=== PATIENT | female | born 1950 | race Caucasian/White ===

== ENCOUNTER 2021-12-27 05:33 | Emergency (ER) | payer MEDICARE ==
[2021-12-27] MEDS ORDERED: SODIUM CHLORIDE 0.9% 1,000 ML IV STA (05:42)
[2021-12-27] MEDS ORDERED: SODIUM CHLORIDE 0.9% 500 ML 500 ML IV STA (05:42)
[2021-12-27] MEDS ORDERED: HYDROmorphone 1 MG/ML 1 ML SYRINGE IVP STA ×2 (05:51→10:57)
[2021-12-27] MEDS ORDERED: ONDANSETRON 4 MG/2 ML VIAL IVP STA (06:13)
[2021-12-27 06:19] LABS: Partial Thromboplastin Time 22.2 sec (22.0-30.0)
[2021-12-27 06:22] LABS: Albumin 2.9 g/dL (3.5-5.0); Calcium 8.5 mg/dL (8.4-10.2); Magnesium 1.8 mg/dL (1.6-2.3); Phosphorus 3.6 mg/dL (2.5-4.5); Potassium 4.2 mmol/L (3.5-5.1); Total Bilirubin 0.6 mg/dL (0.2-1.3); Total Protein 5.7 g/dL (6.3-8.2)
[2021-12-27 06:23] LABS: Basophils # (A) 0.1 k/uL (0-0.2); Basophils % (A) 0 %; Eosinophils # (A) 0.1 k/uL (0-0.7); Eosinophils % (A) 1 %; HCT 40.2 % (34.0-46.0); HGB 12.6 gm/dL (11.4-16.0); Hypochromasia Moderate; Lymphocytes # (A) 2.8 k/uL (1.0-4.8); Lymphocytes % (A) 17 %; MCH 31.3 pg (25.0-35.0); MCHC 31.4 g/dL (31.0-37.0); MCV 99.9 fL (80.0-100.0); Macrocytosis Slight; Mean Platelet Volume 9.6; Monocytes # (A) 0.7 k/uL (0-1.0); Monocytes % (A) 5 %; Neutrophils # (A) 12.1 k/uL (1.3-7.7); Neutrophils % (A) 76 %; Platelet Count 224 k/uL (150-450); RBC 4.02 m/uL (3.80-5.40)
[2021-12-27 06:28] LABS: Appearance,Urine Clear (Clear); Bilirubin,Urine 1+ (Negative); Blood,Urine Trace (Negative); Color,Urine Yellow; Glucose,Urine (UA) Negative (Negative); Hyaline Casts,Urine 7 /lpf (0-2); Ketones,Urine 2+ (Negative); Leukocyte Esterase,Urine Negative (Negative); Mucus,Urine Moderate /hpf; Nitrite,Urine Negative (Negative); Protein,Urine 1+ (Negative); RBC,Urine 4 /hpf (0-5); Specific Gravity,Urine 1.037 (1.001-1.035); Squamous Epithelial Cell,Urine 2 /hpf (0-4); WBC,Urine 4 /hpf (0-5)
--- NOTE | 2021-12-27 07:10 | ED ---
Abdominal Pain HPI - General Chief Complaint: Abdominal Pain Stated Complaint: abd pain Time Seen by Provider: 12/27/21 06:00 Source: patient, RN notes reviewed Mode of arrival: EMS - History of Present Illness Initial Comments: This is a 71 year old female who presents to the emergency department for abdominal pain and distension. States that the symptoms have been present for 1-1.5 weeks. Abdominal pain started in the bilateral lower quadrants, and has spread to the right upper quadrant. States that she has had intermittent loose stools, denies any hematochezia, dysuria, hematuria, fevers, or chills. Abdominal pain is described as sharp and she states that it has been progressing over the last 1-1.5 weeks. She has associated nausea and vomiting. Patient is currently being treated for uterine cancer with Dr. Mckinney at [facility]. Unsure how aggressive the cancer is, but states that she believes it is fairly severe. MD Complaint: abdominal pain Onset/Timin -: week(s) Location: RUQ, LLQ, RLQ Severity: severe Quality: sharp Consistency: constant Associated Symptoms: nausea, vomiting, diarrhea - Related Data Allergies Allergy/AdvReac Type Severity Reaction Status Date / Time propoxyphene Allergy Nausea & Verified 12/27/21 05:51 [From Darvocet-N] Vomiting Review of Systems ROS Statement: Those systems with pertinent positive or pertinent negative responses have been documented in the HPI. ROS Other: All systems not noted in ROS Statement are negative. Constitutional: Denies: fever, chills ENT: Denies: ear pain, throat pain Respiratory: Denies: cough, dyspnea Cardiovascular: Denies: chest pain, palpitations Endocrine: Denies: fatigue Gastrointestinal: Reports: abdominal pain, nausea, vomiting, diarrhea. Denies: constipation, hematemesis, hematochezia Genitourinary: Denies: urgency, dysuria, frequency, hematuria Musculoskeletal: Denies: back pain Skin: Denies: rash Neurological: Denies: headache General Exam Limitations: no limitations General appearance: alert, in no apparent distress Head exam: Present: atraumatic, normocephalic, normal inspection Neck exam: Present: normal inspection. Absent: tenderness, meningismus, lymphadenopathy Respiratory exam: Present: normal lung sounds bilaterally. Absent: respiratory distress, wheezes, rales, rhonchi, stridor Cardiovascular Exam: Present: regular rate, normal rhythm, normal heart sounds. Absent: systolic murmur, diastolic murmur, rubs, gallop, clicks GI/Abdominal exam: Present: soft, distended, tenderness (RUQ, RLQ, and LLQ), normal bowel sounds. Absent: guarding, rebound, rigid, organomegaly, mass Neurological exam: Present: alert, oriented X3, CN II-XII intact Psychiatric exam: Present: normal affect, normal mood Skin exam: Present: warm, dry, intact, normal color. Absent: rash Course Vital Signs 12/27/21 12/27/21 12/27/21 05:41 07:14 08:59 Temperature 97.5 F L Pulse Rate 100 102 H 110 H Respiratory 18 20 20 Rate Blood Pressure 112/45 130/78 126/67 O2 Sat by Pulse 99 98 96 Oximetry 12/27/21 10:57 Temperature 98.5 F Pulse Rate 100 Respiratory 22 Rate Blood Pressure 115/89 O2 Sat by Pulse 100 Oximetry Medical Decision Making - Medical Decision Making This is a 71-year-old female who presents the emergency department for abdominal pain. Initial lab work obtained reveals an elevated white count with a left shift. Given the concern for infection, a CT with contrast was obtained for further evaluation. She does not have compromised kidney function preventing her from having IV contrast. CT scan of the abd/pelvis revealed a suspicious ovarian pathology, omental caking, ascites, and liver and lung metastasis. Patient is currently being treated for uterine cancer and CLL. CLL is being monitored by Dr. Cabrera with [facility]. Her uterine cancer is currently being worked up by Dr. Mckinney at [facility]. She was told that uterine cancer is severe, however she is unsure what stage it is at. She also had breast cancer in the . She had a lumpectomy but no chemo or radiation was required. Cancer progression is likely the cause of the patient's progressive abdominal pain. Discussed with the patient that her cancer had metastasized to her lungs and liver, with concern for additional ovarian pathology. Discussed with the patient the option of being admitted to our facility for pain control vs being transferred to [facility] to see her oncologist Dr. Mckinney for continuity of care. Patient would like to be transferred to [facility]. She was accepted by [facility] and will be transferred accordingly. Dr. Atkins is the accepting physician in the emergency department. This case was discussed in detail with the attending ED physician. Presentation, findings, and treatment plan discussed in detail as well. - Lab Data Result diagrams: 12/27/21 05:59 12/27/21 05:59 Lab Results 12/27/21 12/27/21 12/27/21 Range/Units 05:59 05:59 05:59 WBC 16.0 H (3.8-10.6) k/uL RBC 4.02 (3.80-5.40) m/uL Hgb 12.6 (11.4-16.0) gm/dL Hct 40.2 (34.0-46.0) % MCV 99.9 (80.0-100.0) fL MCH 31.3 (25.0-35.0) pg MCHC 31.4 (31.0-37.0) g/dL RDW 15.0 (11.5-15.5) % Plt Count 224 (150-450) k/uL MPV 9.6 Neutrophils % 76 % Lymphocytes % 17 % Monocytes % 5 % Eosinophils % 1 % Basophils % 0 % Neutrophils # 12.1 H (1.3-7.7) k/uL Lymphocytes # 2.8 (1.0-4.8) k/uL Monocytes # 0.7 (0-1.0) k/uL Eosinophils # 0.1 (0-0.7) k/uL Basophils # 0.1 (0-0.2) k/uL Hypochromasia Moderate Macrocytosis Slight PT 11.0 (9.0-12.0) sec INR 1.0 (<1.2) APTT 22.2 (22.0-30.0) sec Sodium (137-145) mmol/L Potassium (3.5-5.1) mmol/L Chloride (98-107) mmol/L Carbon Dioxide (22-30) mmol/L Anion Gap mmol/L BUN (7-17) mg/dL Creatinine (0.52-1.04) mg/dL Est GFR (CKD-EPI)AfAm (>60 ml/min/1.73 sqM) Est GFR (CKD-EPI)NonAf (>60 ml/min/1.73 sqM) Glucose (74-99) mg/dL Plasma Lactic Acid Gui (0.7-2.0) mmol/L Calcium (8.4-10.2) mg/dL Phosphorus (2.5-4.5) mg/dL Magnesium (1.6-2.3) mg/dL Total Bilirubin (0.2-1.3) mg/dL AST (14-36) U/L ALT (4-34) U/L Alkaline Phosphatase (38-126) U/L Troponin I (0.000-0.034) ng/mL NT-Pro-B Natriuret Pep pg/mL Total Protein (6.3-8.2) g/dL Albumin (3.5-5.0) g/dL Lipase (23-300) U/L Urine Color Yellow Urine Appearance Clear (Clear) Urine pH 6.0 (5.0-8.0) Ur Specific [place] 1.037 H (1.001-1.035) Urine Protein 1+ H (Negative) Urine Glucose (UA) Negative (Negative) Urine Ketones 2+ H (Negative) Urine Blood Trace H (Negative) Urine Nitrite Negative (Negative) Urine Bilirubin 1+ H (Negative) Urine Urobilinogen 4.0 (<2.0) mg/dL Ur Leukocyte Esterase Negative (Negative) Urine RBC 4 (0-5) /hpf Urine WBC 4 (0-5) /hpf Ur Squamous Epith Cells 2 (0-4) /hpf Hyaline Casts 7 H (0-2) /lpf Urine Mucus Moderate H (None) /hpf 12/27/21 12/27/21 12/27/21 Range/Units 05:59 05:59 05:59 WBC (3.8-10.6) k/uL RBC (3.80-5.40) m/uL Hgb (11.4-16.0) gm/dL Hct (34.0-46.0) % MCV (80.0-100.0) fL MCH (25.0-35.0) pg MCHC (31.0-37.0) g/dL RDW (11.5-15.5) % Plt Count (150-450) k/uL MPV Neutrophils % % Lymphocytes % % Monocytes % % Eosinophils % % Basophils % % Neutrophils # (1.3-7.7) k/uL Lymphocytes # (1.0-4.8) k/uL Monocytes # (0-1.0) k/uL Eosinophils # (0-0.7) k/uL Basophils # (0-0.2) k/uL Hypochromasia Macrocytosis PT (9.0-12.0) sec INR (<1.2) APTT (22.0-30.0) sec Sodium 131 L (137-145) mmol/L Potassium 4.2 (3.5-5.1) mmol/L Chloride 96 L (98-107) mmol/L Carbon Dioxide 23 (22-30) mmol/L Anion Gap 12 mmol/L BUN 12 (7-17) mg/dL Creatinine 0.99 (0.52-1.04) mg/dL Est GFR (CKD-EPI)AfAm 67 (>60 ml/min/1.73 sqM) Est GFR (CKD-EPI)NonAf 58 (>60 ml/min/1.73 sqM) Glucose 114 H (74-99) mg/dL Plasma Lactic Acid Gui 2.0 (0.7-2.0) mmol/L Calcium 8.5 (8.4-10.2) mg/dL Phosphorus 3.6 (2.5-4.5) mg/dL Magnesium 1.8 (1.6-2.3) mg/dL Total Bilirubin 0.6 (0.2-1.3) mg/dL AST 34 (14-36) U/L ALT 9 (4-34) U/L Alkaline Phosphatase 71 (38-126) U/L Troponin I <0.012 (0.000-0.034) ng/mL NT-Pro-B Natriuret Pep pg/mL Total Protein 5.7 L (6.3-8.2) g/dL Albumin 2.9 L (3.5-5.0) g/dL Lipase 30 (23-300) U/L Urine Color Urine Appearance (Clear) Urine pH (5.0-8.0) Ur Specific [place] (1.001-1.035) Urine Protein (Negative) Urine Glucose (UA) (Negative) Urine Ketones (Negative) Urine Blood (Negative) Urine Nitrite (Negative) Urine Bilirubin (Negative) Urine Urobilinogen (<2.0) mg/dL Ur Leukocyte Esterase (Negative) Urine RBC (0-5) /hpf Urine WBC (0-5) /hpf Ur Squamous Epith Cells (0-4) /hpf Hyaline Casts (0-2) /lpf Urine Mucus (None) /hpf 12/27/21 Range/Units 05:59 WBC (3.8-10.6) k/uL RBC (3.80-5.40) m/uL Hgb (11.4-16.0) gm/dL Hct (34.0-46.0) % MCV (80.0-100.0) fL MCH (25.0-35.0) pg MCHC (31.0-37.0) g/dL RDW (11.5-15.5) % Plt Count (150-450) k/uL MPV Neutrophils % % Lymphocytes % % Monocytes % % Eosinophils % % Basophils % % Neutrophils # (1.3-7.7) k/uL Lymphocytes # (1.0-4.8) k/uL Monocytes # (0-1.0) k/uL Eosinophils # (0-0.7) k/uL Basophils # (0-0.2) k/uL Hypochromasia Macrocytosis PT (9.0-12.0) sec INR (<1.2) APTT (22.0-30.0) sec Sodium (137-145) mmol/L Potassium (3.5-5.1) mmol/L Chloride (98-107) mmol/L Carbon Dioxide (22-30) mmol/L Anion Gap mmol/L BUN (7-17) mg/dL Creatinine (0.52-1.04) mg/dL Est GFR (CKD-EPI)AfAm (>60 ml/min/1.73 sqM) Est GFR (CKD-EPI)NonAf (>60 ml/min/1.73 sqM) Glucose (74-99) mg/dL Plasma Lactic Acid Gui (0.7-2.0) mmol/L Calcium (8.4-10.2) mg/dL Phosphorus (2.5-4.5) mg/dL Magnesium (1.6-2.3) mg/dL Total Bilirubin (0.2-1.3) mg/dL AST (14-36) U/L ALT (4-34) U/L Alkaline Phosphatase (38-126) U/L Troponin I (0.000-0.034) ng/mL NT-Pro-B Natriuret Pep 92 pg/mL Total Protein (6.3-8.2) g/dL Albumin (3.5-5.0) g/dL Lipase (23-300) U/L Urine Color Urine Appearance (Clear) Urine pH (5.0-8.0) Ur Specific [place] (1.001-1.035) Urine Protein (Negative) Urine Glucose (UA) (Negative) Urine Ketones (Negative) Urine Blood (Negative) Urine Nitrite (Negative) Urine Bilirubin (Negative) Urine Urobilinogen (<2.0) mg/dL Ur Leukocyte Esterase (Negative) Urine RBC (0-5) /hpf Urine WBC (0-5) /hpf Ur Squamous Epith Cells (0-4) /hpf Hyaline Casts (0-2) /lpf Urine Mucus (None) /hpf - EKG Data EKG shows normal: sinus rhythm EKG Comments: Sinus rhythm, ventricular rate of 99 BPM, MS interval of 123 ms, QRS duration of 82 ms, and QTc of 412 ms. When compared to previous EKG there are: previous EKG unavailable - Radiology Data Radiology results: report reviewed, image reviewed Disposition Clinical Impression: Metastasis to liver, Metastasis to lung, Uterine cancer Disposition: OTHER INSTITUTION NOT DEFINED Referrals: Evonne Ritchie MD [Primary Care Provider] - 1-2 days - Out of Hospital Transfer - Req. Specs Out of Hospital Transfer - Requested Specifics: Other Emergency Center ([facility])
--- NOTE | 2021-12-27 09:03 | CT ---
EXAMINATION TYPE: CT abdomen pelvis w con DATE OF EXAM: 12/27/2021 COMPARISON: None INDICATION: Abdominal pain-generalized, nausea and vomiting DLP: 1663.6 mGycm, Automated exposure control for dose reduction was used. CONTRAST: 80 mL of Isovue 300. Study performed without Oral Contrast TECHNIQUE: Axial images were obtained from above the diaphragm to the pubic rami in the axial plane a t 5 mm thick sections. Reconstructed images are reviewed on the computer in the coronal plane. FINDINGS: Limited CT sections are obtained the lung bases. Extensive nodularity is present through the periphe ral lung bases. Largest peripheral nodule in the posterior lateral left lung measuring 2.3 x 1.3 cm. Findings are suggestive for metastatic disease. Small bilateral pleural effusions are present.. CT ABDOMEN: Ascites is present omental caking appears to be present. Liver: There are multiple scattered hypodensities through the liver suspicious for multiple metastati c disease. Spleen: No suspicious nodules identified. Pancreas: Normal Adrenal glands: The adrenal glands are normal. Gallbladder: Normal Kidneys: No masses are evident. No hydronephrosis is present. No cysts are present. Delayed images were obtained through the kidneys, which remain unremarkable. Aorta: Vascular calcification is within the aorta. Inferior vena cava: Normal. CT PELVIS: Loops of bowel within the abdomen and pelvis are normal. The study is performed without oral cont rast limiting bowel evaluation. Appendix: Normal as visualized. Urinary bladder: A compressive limited evaluation Genitourinary structures: Uterus appears heterogenous and may contain thickened endometrium. Ovaries are indistinct. Large cysts appear to be present on the right. Osseous structures: No suspicious lytic or sclerotic lesions. Postsurgical changes of the lumbar spin e IMPRESSIONS: 1. Ill-defined enlarged uterus and suspicious thickened cysts within the right adnexa. Omental cakin g, ascites, and multiple nodules within the lung bases and through the liver suggest metastatic disea se. Workup for ovarian primary is recommended.
[2021-12-27 10:58] VITALS: TEMP 98.5
[2021-12-27 12:16] VITALS: BP 135/60; PULSE 105; RESP 18
== END 2021-12-27 12:32 | disposition other institution (70) ==
LOC: EC 05:33
DX: C55 Malignant neoplasm of uterus, part unspecified (principal); C78.7 Secondary malignant neoplasm of liver and intrahepatic bile duct; C78.00 Secondary malignant neoplasm of unspecified lung
CPT/HCPCS: 36415; 93005; 83880; 80053; 83605; 83690; 83735; 84100; 84484; 85025; 85610; 85730; 81001; 74177; 99285; 96374; 96375; 96376; J2405; J1170; Q9967

== ENCOUNTER 2022-01-03 16:44 | Inpatient (IN) | payer MEDICARE ==
[2022-01-03 16:53] LABS: Glucose,Whole Blood 115 mg/dL (75-99)
[2022-01-03] MEDS ORDERED: SODIUM CHLORIDE 0.9% 500 ML 500 ML IV STA (17:25)
--- NOTE | 2022-01-03 17:35 | ED ---
General Adult HPI - General Chief complaint: Fall Stated complaint: Fall Time Seen by Provider: 01/03/22 16:50 Source: EMS Mode of arrival: EMS Limitations: no limitations - History of Present Illness Initial comments: This 71-year-old female with CKD stage IV, hyperlipidemia and uterine cancer with metastases to liver and kidney presents to the emergency department after falling earlier today. Patient states around 2:00 she went to get up from her c hair when she states her legs gave out, causing her to fall hitting her right shoulder and head. Patient states she was discharged from [facility] about 2 days ago and has been feeling increased weakness since due to her laying in bed in the hospital for so long. Patient denies any loss of consciousness, neck or head pain at this time. Patient states she has had some mild aching to her right shoulder. Patient states she did fall onto her right knee first before falling onto her right shoulder and hitting the right side of her head, however she denies any pain to the right knee at this time or any loss of range of motion or sensation of right knee/leg. Patient denies any chest pain, shortness of breath, abdominal pain, nausea, vomiting, change in vision, change in bowel or bladder, lightheadedness, dizziness, neck pain, back pain. Patient states she currently sees at [facility] for oncology. Patient states she is not on chemo or radiation to states she is on something for her cancer but is unsure what it is. She states she gets the treatment one time every 3 weeks. - Related Data Home Medications Medication Instructions Recorded Confirmed Acetaminophen Tab [Tylenol] 975 mg PO Q6H PRN 01/03/22 01/03/22 Ascorbic Acid [Vitamin C] 2,000 mg PO DAILY 01/03/22 01/03/22 Cholecalciferol [Vitamin D3 (25 25 mcg PO DAILY 01/03/22 01/03/22 Mcg = 1000 Iu)] Dulaglutide [Trulicity] 0.75 mg SQ MO 01/03/22 01/03/22 Losartan [Cozaar] 12.5 mg PO HS 01/03/22 01/03/22 Magnesium Hydroxide [Milk of 2,400 mg PO HS PRN 01/03/22 01/03/22 Magnesia] Metoprolol Tartrate [Lopressor] 12.5 mg PO BID 01/03/22 01/03/22 Simethicone Chew [Mylicon Chew] 80 mg PO QID PRN 01/03/22 01/03/22 Simvastatin [Zocor] 20 mg PO HS 01/03/22 01/03/22 ondansetron HCL [Zofran] 8 mg PO Q8H PRN 01/03/22 01/03/22 oxyCODONE HCL [OxyIR] 7.5 mg PO Q4H PRN 01/03/22 01/03/22 polyethylene glycoL 3350 [Miralax] 17 gm PO DAILY 01/03/22 01/03/22 Allergies Allergy/AdvReac Type Severity Reaction Status Date / Time amoxicillin [From Augmentin] Allergy Unknown Verified 01/03/22 18:05 clavulanic acid Allergy Unknown Verified 01/03/22 18:05 [From Augmentin] erythromycin base Allergy Unknown Verified 01/03/22 18:05 metformin Allergy Unknown Verified 01/03/22 18:05 propoxyphene AdvReac Nausea & Verified 01/03/22 18:04 [From Darvocet-N] Vomiting sodium acetate trihydrate Allergy Unknown Uncoded 01/03/22 18:05 Review of Systems ROS Statement: Those systems with pertinent positive or pertinent negative responses have been documented in the HPI. ROS Other: All systems not noted in ROS Statement are negative. Past Medical History Past Medical History: Diabetes Mellitus, Hypertension Additional Past Medical History / Comment(s): kidney dx stage 4. liver issues. uterine cx with mets to liver and kidney. hypercholestremia History of Any Multi-Drug Resistant Organisms: None Reported Past Surgical History: Tubal Ligation Additional Past Surgical History / Comment(s): eye surgery Past Psychological History: No Psychological Hx Reported Smoking Status: Never smoker Past Alcohol Use History: None Reported Past Drug Use History: None Reported General Exam Limitations: no limitations General appearance: alert, in no apparent distress Head exam: Present: atraumatic, normocephalic, normal inspection Eye exam: Present: normal appearance, PERRL, EOMI. Absent: scleral icterus, conjunctival injection, periorbital swelling ENT exam: Present: mucous membranes moist Neck exam: Present: normal inspection, full ROM. Absent: tenderness, meningismus, lymphadenopathy Respiratory exam: Present: normal lung sounds bilaterally, wheezes (Left lung with wheezing). Absent: respiratory distress, rales, rhonchi, stridor Cardiovascular Exam: Present: regular rate, normal rhythm, normal heart sounds. Absent: systolic murmur, diastolic murmur, rubs, gallop, clicks GI/Abdominal exam: Present: soft, tenderness (Diffuse generalized abdominal discomfort on palpation. Patient states her abdomen is usually distended similar to this and states she has gotten paracentesis performed in the past due to her cancer), normal bowel sounds. Absent: distended, guarding, rebound, rigid Extremities exam: Present: normal inspection, full ROM, normal capillary refill, other (Patient with tenderness to palpation over proximal and anterior right shoulder. Patient with full range of motion. Radial and ulnar pulses intact. Full sensation intact in right extremity). Absent: tenderness, pedal edema, joint swelling, calf tenderness Back exam: Absent: CVA tenderness (R), CVA tenderness (L), paraspinal tenderness, vertebral tenderness Neurological exam: Present: alert, oriented X3, CN II-XII intact Psychiatric exam: Present: normal affect, normal mood Skin exam: Present: warm, dry, intact, normal color, diaphoretic. Absent: rash Course Vital Signs 01/03/22 01/03/22 01/03/22 16:45 18:41 20:00 Temperature 95.4 F L Pulse Rate 107 H 105 H 98 Respiratory 20 18 16 Rate Blood Pressure 104/48 111/66 112/57 O2 Sat by Pulse 95 96 96 Oximetry EKG Findings - EKG Comments: EKG Findings:: EKG impression: Sinus tachycardia. Ventricular rate 106 bpm. [place] interval 129. Tress duration 86. QT/QTC 337/399 Medical Decision Making - Medical Decision Making This 8-year-old female with metastatic uterine cancer presents emergency [place] after a fall this morning and increased weakness. Patient with that blood cells 20.6, PTT 31.3, sodium 126, potassium 5.6, BUN 32, creatinine 1.42, pleasant lactic acid 2.1. X-ray right shoulder impression: No acute osseous pathology, joint dislocation or soft tissue swelling. Chest x-ray impression: No acute cardiopulmonary disease process. Scattered pulmonary nodules cystic with metastatic disease. CT brain and C-spine without contrast impression: Area of vasogenic edema in the left frontal lobe along with pulmonary nodules likely representing metastatic disease. No evidence of cervical spine fracture. Mild multilevel degenerative disc disease. No acute intracranial process. Fluids given the patient. COVID-19 negative. Spoke with who agreed to admit patient to his services. He did suggest I give patient lokelma 10mg along with placing patient on IV fluids. from oncology was consulted. Patient did request to stay at [facility] rather than being transferred to [facility] where her oncology team currently is at. Patient verbally agreed to be admitted for further workup, evaluation and treatment. Discussed case in detail with my attending, . Urine did show ordered and collected, however once he called lab they denied receiving any urine sample. Patient was already sent to upstairs room at this time. Nurse did call patient's nurse upstairs after patient was placed in a room to request a urine sample. - Lab Data Result diagrams: 01/03/22 17:26 01/03/22 17:26 Lab Results 01/03/22 01/03/22 01/03/22 Range/Units 16:50 17:26 17:26 WBC 20.6 H (3.8-10.6) k/uL RBC 4.39 (3.80-5.40) m/uL Hgb 13.6 (11.4-16.0) gm/dL Hct 43.8 (34.0-46.0) % MCV 99.7 (80.0-100.0) fL MCH 30.8 (25.0-35.0) pg MCHC 30.9 L (31.0-37.0) g/dL RDW 15.0 (11.5-15.5) % Plt Count 342 (150-450) k/uL MPV 9.3 Neutrophils % 75 % Lymphocytes % 21 % Monocytes % 3 % Eosinophils % 0 % Basophils % 0 % Neutrophils # 15.4 H (1.3-7.7) k/uL Lymphocytes # 4.4 (1.0-4.8) k/uL Monocytes # 0.6 (0-1.0) k/uL Eosinophils # 0.0 (0-0.7) k/uL Basophils # 0.1 (0-0.2) k/uL Hypochromasia Moderate Macrocytosis Slight PT 11.0 (9.0-12.0) sec INR 1.0 (<1.2) APTT 31.3 H (22.0-30.0) sec Sodium (137-145) mmol/L Potassium (3.5-5.1) mmol/L Chloride (98-107) mmol/L Carbon Dioxide (22-30) mmol/L Anion Gap mmol/L BUN (7-17) mg/dL Creatinine (0.52-1.04) mg/dL Est GFR (CKD-EPI)AfAm (>60 ml/min/1.73 sqM) Est GFR (CKD-EPI)NonAf (>60 ml/min/1.73 sqM) Glucose (74-99) mg/dL POC Glucose (mg/dL) 115 H (75-99) mg/dL POC Glu Cloth Cutting Inspector ID Erwin Ceballos Lactic Ac Sepsis Rflx Plasma Lactic Acid Gui (0.7-2.0) mmol/L Calcium (8.4-10.2) mg/dL Magnesium (1.6-2.3) mg/dL Total Bilirubin (0.2-1.3) mg/dL AST (14-36) U/L ALT (4-34) U/L Alkaline Phosphatase (38-126) U/L Troponin I (0.000-0.034) ng/mL Total Protein (6.3-8.2) g/dL Albumin (3.5-5.0) g/dL Amylase (30-110) U/L Lipase (23-300) U/L Coronavirus (PCR) (Not Detectd) 01/03/22 01/03/22 01/03/22 Range/Units 17:26 17:26 17:26 WBC (3.8-10.6) k/uL RBC (3.80-5.40) m/uL Hgb (11.4-16.0) gm/dL Hct (34.0-46.0) % MCV (80.0-100.0) fL MCH (25.0-35.0) pg MCHC (31.0-37.0) g/dL RDW (11.5-15.5) % Plt Count (150-450) k/uL MPV Neutrophils % % Lymphocytes % % Monocytes % % Eosinophils % % Basophils % % Neutrophils # (1.3-7.7) k/uL Lymphocytes # (1.0-4.8) k/uL Monocytes # (0-1.0) k/uL Eosinophils # (0-0.7) k/uL Basophils # (0-0.2) k/uL Hypochromasia Macrocytosis PT (9.0-12.0) sec INR (<1.2) APTT (22.0-30.0) sec Sodium 126 L (137-145) mmol/L Potassium 5.6 H (3.5-5.1) mmol/L Chloride 97 L (98-107) mmol/L Carbon Dioxide 16 L (22-30) mmol/L Anion Gap 13 mmol/L BUN 32 H (7-17) mg/dL Creatinine 1.42 H (0.52-1.04) mg/dL Est GFR (CKD-EPI)AfAm 43 (>60 ml/min/1.73 sqM) Est GFR (CKD-EPI)NonAf 38 (>60 ml/min/1.73 sqM) Glucose 122 H (74-99) mg/dL POC Glucose (mg/dL) (75-99) mg/dL POC Glu Cloth Cutting Inspector ID Lactic Ac Sepsis Rflx Plasma Lactic Acid Gui 2.1 H* (0.7-2.0) mmol/L Calcium 8.8 (8.4-10.2) mg/dL Magnesium 2.3 (1.6-2.3) mg/dL Total Bilirubin 0.6 (0.2-1.3) mg/dL AST 53 H (14-36) U/L ALT 13 (4-34) U/L Alkaline Phosphatase 160 H (38-126) U/L Troponin I <0.012 (0.000-0.034) ng/mL Total Protein 5.4 L (6.3-8.2) g/dL Albumin 2.7 L (3.5-5.0) g/dL Amylase 36 (30-110) U/L Lipase 59 (23-300) U/L Coronavirus (PCR) (Not Detectd) 01/03/22 01/03/22 Range/Units 18:03 18:55 WBC (3.8-10.6) k/uL RBC (3.80-5.40) m/uL Hgb (11.4-16.0) gm/dL Hct (34.0-46.0) % MCV (80.0-100.0) fL MCH (25.0-35.0) pg MCHC (31.0-37.0) g/dL RDW (11.5-15.5) % Plt Count (150-450) k/uL MPV Neutrophils % % Lymphocytes % % Monocytes % % Eosinophils % % Basophils % % Neutrophils # (1.3-7.7) k/uL Lymphocytes # (1.0-4.8) k/uL Monocytes # (0-1.0) k/uL Eosinophils # (0-0.7) k/uL Basophils # (0-0.2) k/uL Hypochromasia Macrocytosis PT (9.0-12.0) sec INR (<1.2) APTT (22.0-30.0) sec Sodium (137-145) mmol/L Potassium (3.5-5.1) mmol/L Chloride (98-107) mmol/L Carbon Dioxide (22-30) mmol/L Anion Gap mmol/L BUN (7-17) mg/dL Creatinine (0.52-1.04) mg/dL Est GFR (CKD-EPI)AfAm (>60 ml/min/1.73 sqM) Est GFR (CKD-EPI)NonAf (>60 ml/min/1.73 sqM) Glucose (74-99) mg/dL POC Glucose (mg/dL) (75-99) mg/dL POC Glu Cloth Cutting Inspector ID Lactic Ac Sepsis Rflx Y Plasma Lactic Acid Gui (0.7-2.0) mmol/L Calcium (8.4-10.2) mg/dL Magnesium (1.6-2.3) mg/dL Total Bilirubin (0.2-1.3) mg/dL AST (14-36) U/L ALT (4-34) U/L Alkaline Phosphatase (38-126) U/L Troponin I (0.000-0.034) ng/mL Total Protein (6.3-8.2) g/dL Albumin (3.5-5.0) g/dL Amylase (30-110) U/L Lipase (23-300) U/L Coronavirus (PCR) Not Detected (Not Detectd) Disposition Clinical Impression: Metastatic cancer to brain, Weakness, Leukocytosis, Hyponatremia, Fall, Uterine cancer, Metastasis to lung, Metastasis to liver Disposition: ADMITTED IP TO THIS HOSP Condition: Serious Time of Disposition: 19:03
[2022-01-03 17:48] LABS: Basophils # (A) 0.1 k/uL (0-0.2); Basophils % (A) 0 %; Eosinophils % (A) 0 %; HCT 43.8 % (34.0-46.0); HGB 13.6 gm/dL (11.4-16.0); Hypochromasia Moderate; Lymphocytes # (A) 4.4 k/uL (1.0-4.8); Lymphocytes % (A) 21 %; MCH 30.8 pg (25.0-35.0); MCHC 30.9 g/dL (31.0-37.0); MCV 99.7 fL (80.0-100.0); Macrocytosis Slight; Mean Platelet Volume 9.3; Monocytes # (A) 0.6 k/uL (0-1.0); Monocytes % (A) 3 %; Neutrophils # (A) 15.4 k/uL (1.3-7.7); Neutrophils % (A) 75 %; Partial Thromboplastin Time 31.3 sec (22.0-30.0); Platelet Count 342 k/uL (150-450); RBC 4.39 m/uL (3.80-5.40); WBC 20.6 k/uL (3.8-10.6)
[2022-01-03] MEDS ORDERED: HYDROmorphone 0.5 MG/0.5 ML SYRINGE IVP STA (17:48)
[2022-01-03] MEDS ORDERED: FAMOTIDINE 20 MG/2 ML VIAL IV STA (17:49)
[2022-01-03 17:50] LABS: Albumin 2.7 g/dL (3.5-5.0); Calcium 8.8 mg/dL (8.4-10.2); Magnesium 2.3 mg/dL (1.6-2.3); Potassium 5.6 mmol/L (3.5-5.1); Total Bilirubin 0.6 mg/dL (0.2-1.3); Total Protein 5.4 g/dL (6.3-8.2)
--- NOTE | 2022-01-03 18:20 | CT ---
EXAMINATION TYPE: CT brain cspine wo con CT DLP: 1339.6 mGycm, Automated exposure control for dose reduction was used. DATE OF EXAM: 01/03/2022 6:03 PM COMPARISON: None CLINICAL INDICATION:Female, 71 years old with history of syncope; pain, fall TECHNIQUE: Brain: Multiple axial CT images of the brain were obtained without IV contrast. Cspine: Axial CT images from the skull base to the inferior aspect of T2 we obtained without intraven ous contrast. Coronal and sagittal reformatted images were also reviewed. FINDINGS: Brain: Extra-axial spaces: No abnormal extra-axial fluid collections. Ventricular system: Within normal limits Cerebral parenchyma: Area of vasogenic edema within the left upper lobe without loss of albrecht-white ma tter differentiation. This is suspicious for underlying mass. No acute intraparenchymal hemorrhage. The remainder of the albrecht-white junctions are well differentiated. Cerebellum: Unremarkable. Mass effect: No evidence of midline shift. Intracranial vasculature: Atherosclerotic calcifications of the intracranial vessels. Soft tissues: Normal. Calvarium/osseous structures: No depressed skull fracture. Paranasal sinuses and mastoid air cells: Clear. Visualized orbits: Bilateral aphakia Cervical spine: Fracture: None. Osseous structures: Multilevel degenerative disc disease changes with endplate spurring and disc oste ophyte complex's. Vertebral alignment: Within normal limits. Spinal canal/Neural Foramina: No evidence of significant spinal canal narrowing. No evidence for sign ificant neural foraminal stenosis. Neck soft tissues: Prevertebral soft tissues are within normal limits. Other: The airway is patent. There is scattered pulmonary nodules throughout the visualized lungs, th e largest in the right measuring up to 10 mm and on the left measuring up to 9 mm. IMPRESSION: 1. No acute intracranial process. 2. Area of vasogenic edema in the left frontal lobe along with pulmonary nodules likely representing metastatic disease. 3. No evidence of cervical spine fracture. 4. Mild multilevel degenerative disc disease.
--- NOTE | 2022-01-03 18:22 | XR ---
EXAMINATION TYPE: XR shoulder complete RT DATE OF EXAM: 01/03/2022 6:05 PM INDICATION: Patient age:Female; 71 years old; Reason for study: fall; COMPARISON: Chest radiograph same day TECHNIQUE: The right shoulder was examined in AP, internally rotated and axillary projections. FINDINGS: No evidence of acute osseous pathology, joint dislocation, or soft tissue swelling. The remaining por tions of the visualized chest are unremarkable. Right [id number]-a-[id number] partially visualized. IMPRESSION: No acute osseous pathology.
--- NOTE | 2022-01-03 18:22 | XR ---
EXAMINATION TYPE: XR chest 2V DATE OF EXAM: 01/03/2022 6:05 PM COMPARISON: CT C-spine same day TECHNIQUE: XR chest 2V Frontal and lateral views of the chest. CLINICAL INDICATION:Female, 71 years old with history of syncope; FINDINGS: Lungs/Pleura: There is no evidence of pleural effusion, focal consolidation, or pneumothorax. Scatte red pulmonary nodules are better appreciated on CT C-spine. Largest on the right measuring up to 8 mm on this exam. Pulmonary vascularity: Unremarkable. Heart/mediastinum: Cardiomediastinal silhouette is unremarkable. Musculoskeletal: No acute osseous pathology. Lines/Tubes: Erotjk-k-[id number] projecting over the right hemithorax with distal tip at the cavoatrial junction. IMPRESSION: 1. No acute cardiopulmonary disease/process. 2. Scattered pulmonary nodules cystic with metastatic disease.
[2022-01-03] MEDS ORDERED: SODIUM ZIRCONIUM CYCLOSILICATE 10 GM PACKET PO ONE (19:01)
[2022-01-03] MEDS ORDERED: ONDANSETRON 4 MG/2 ML VIAL IVP PRN (19:03)
[2022-01-03] MEDS ORDERED: NALOXONE 0.4 MG/ML 1 ML VIAL IV PRN (19:03)
[2022-01-03] MEDS: HYDROmorphone 0.5 MG/0.5 ML SYRINGE IVP PRN (23:41)
[2022-01-04 00:05] LABS: Glucose,Whole Blood 101 mg/dL (75-99)
[2022-01-04] MEDS: SODIUM CHLORIDE 0.9% 1,000 ML IV SCH ×2 (01:35→07:04)
[2022-01-04] MEDS: HYDROmorphone 0.5 MG/0.5 ML SYRINGE IVP PRN ×3 (03:22→16:36)
[2022-01-04] MEDS ORDERED: ACETAMINOPHEN TAB 325 MG TAB PO PRN (10:16)
[2022-01-04] MEDS ORDERED: TEMAZEPAM 15 MG CAP PO PRN (12:03)
[2022-01-04] MEDS ORDERED: LORazepam 0.5 MG TAB PO PRN (12:03)
[2022-01-04] MEDS ORDERED: LACTULOSE 20 GM/30 ML CUP PO PRN (12:03)
[2022-01-04] MEDS ORDERED: ENOXAPARIN 40 MG/0.4 ML SYRINGE SQ SCH (12:15)
[2022-01-04] MEDS ORDERED: DEXTROSE 5%-0.45% NACL 1,000 ML IV SCH (12:15)
[2022-01-04] MEDS: oxyCODONE ER 10 MG TAB.ER.12H PO SCH ×2 (12:16→20:15)
[2022-01-04 12:17] VITALS: BMI 32.9
[2022-01-04] MEDS: dexAMETHasone 4 MG TAB PO SCH ×2 (12:22→20:16)
--- NOTE | 2022-01-04 14:23 | P.HPIM ---
History of Present Illness H&P Date: 01/04/22 Chief Complaint: Weakness leading to fall This is a pleasant 71-year-old patient who follows with Dr. Ritchie. Patient has a diagnosis of uterine cancer with metastatic cystoscopy of the lungs kidney liver diagnosed about 1 year ago. She follows with Dr. Mckinney out of [facility]. Patient has received 6 rounds of chemotherapy. Has been getting currently getting Keytruda. Patient was discharged from [facility] 2 days ago. Patient has increasing abdominal pain. Bloated. Appetite is poor. Denies any fever and chills. Normally a bowel movement every 3 days with a laxative. Does get short of breath. No cough. Feels rather weak. Patient got up from a chair at home and fell down falling on the right side hitting her shoulder and head. Did not pass out. She normally uses assistance to walk. She does not wish to continue her treatment down to [place] anymore and wants to establish locally. Review of systems: GEN.: Weak diet poor appetite EYES: None HEENT: None NECK: None RESPIRATORY: Some shortness of breath CARDIOVASCULAR: None GASTROINTESTINAL: Constipation GENITOURINARY: None MUSCULOSKELETAL: Joint pains LYMPHATICS: None HEMATOLOGICAL: None PSYCHIATRY: None NEUROLOGICAL: Leg weakness Past medical history to include: Metastatic uterine cancer treated with chemotherapy, diabetes, hypertension, CAD stage IV, hypercholesterolemia Social history: Patient smoked for over 40 years. Not currently. Lives with her daughter Indy was also the POA. Family history: Reviewed, noncontributory to presentation Physical examination: VITAL SIGNS: 98.2, 107, 17, 92/48, 91% room air GENERAL: BMI 32.9, laying in bed, awake, tired. EYES: Pupils equal. Conjunctiva palel. HEENT: External appearance of nose and ears normal, oral cavity grossly normal. NECK: JVD not raised; masses not palpable. HEART: First and second heart sounds are normal; no edema. LUNGS: Respiratory rate increased, decreased breath sounds. ABDOMEN: [Soft, distended, Doughy tender, liver spleen not palpable, PSYCH: [Alert and oriented x3; mood and affect anxious l. MUSCULOSKELETAL:No Clubbing/cyanosis;muscles-grossly intact, some more NEUROLOGICAL: Cranial nerves grossly intact; no facial asymmetry, power and sensation grossly intact. LYMPHATICS: No lymph nodes palpable in the axilla and neck INVESTIGATIONS, reviewed in the clinical context: White count 20.6 hemoglobin 13.6 platelets 342 sodium 126 potassium 5.6 bicarb 16 BUN 32 creatinine 1.4 to lactic acid 2.1 AST 53 ALT 13 albumin 2.7 COVID 19 PCF: Not detected EKG tracing personally reviewed by me-sinus rhythm, rate 106 Right shoulder: No fracture Chest x-ray film personally reviewed by me-scattered shadows infiltrates CT head: Area of vasogenic edema in the left frontal lobe suspicious of prostatic disease. DJD. 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 Patient was being followed by Dr. Steven Ritchie at [facility]. She wants to move her care here at [facility] on. New Metastatic disease found of the brain now. Consult radiation oncology. Start dexamethasone 4 mg twice a day. -Fall due to worsening medical debility Fall precautions -Acute on chronic abdominal pain that is progressive from metastatic disease intra-abdominally with taking of the omentum and other organs. Start OxyContin 10 mg ER twice daily and when necessary pain medications -Acute kidney injury. Baseline kidney function not known. Suspect prerenal. Hold Cozaar. IV fluids -Metabolic acidosis due to kidney injury IV sodium bicarbonate drip -Hyperkalemia secondary to renal failure Lokelma. Renal diet -Hyperlipidemia Zocor 20 mg daily at bedtime -Diabetes mellitus type 2 Follow Accu-Cheks with sliding scale insulin -Vasogenic edema in the brain Dexamethasone 4 mg twice a day -Hypotension from volume loss. Hold Lopressor and Cozaar. IV fluids -DO NOT RESUSCITATE Sodium IV bicarbonate drip. Fall precautions. OxyContin extended release 10 mg twice a day plus when necessary pain medications. Hold Lopressor and Cozaar. Low potassium diet. Follow Accu-Cheks. Consult oncology. Consult radiation oncology. Soft diet. Care was discussed with the patient question also. Given the complexity and severity of patient's condition expect the patient to be in the hospital at least for 2 overnights Advanced care planning: This was discussed with the patient. Expected in view of metastatic disease. Patient is Dr. Putnam is the POA. Patient has not set up any papers will do so. She has wishes to progress made DO NOT RESUSCITATE. Questions were answered. Time spent for this 20 minutes Past Medical History Past Medical History: Diabetes Mellitus, Hypertension Additional Past Medical History / Comment(s): kidney dx stage 4. liver issues. uterine cx with mets to liver and kidney. hypercholestremia History of Any Multi-Drug Resistant Organisms: None Reported Past Surgical History: Tubal Ligation Additional Past Surgical History / Comment(s): eye surgery Past Anesthesia/Blood Transfusion Reactions: No Reported Reaction Past Psychological History: No Psychological Hx Reported Smoking Status: Never smoker Past Alcohol Use History: None Reported Past Drug Use History: None Reported Medications and Allergies Home Medications Medication Instructions Recorded Confirmed Type Acetaminophen Tab [Tylenol] 975 mg PO Q6H PRN 01/03/22 01/03/22 History Ascorbic Acid [Vitamin C] 2,000 mg PO DAILY 01/03/22 01/03/22 History Cholecalciferol [Vitamin D3 (25 25 mcg PO DAILY 01/03/22 01/03/22 History Mcg = 1000 Iu)] Dulaglutide [Trulicity] 0.75 mg SQ MO 01/03/22 01/03/22 History Losartan [Cozaar] 12.5 mg PO HS 01/03/22 01/03/22 History Magnesium Hydroxide [Milk of 2,400 mg PO HS PRN 01/03/22 01/03/22 History Magnesia] Metoprolol Tartrate [Lopressor] 12.5 mg PO BID 01/03/22 01/03/22 History Simethicone Chew [Mylicon Chew] 80 mg PO QID PRN 01/03/22 01/03/22 History Simvastatin [Zocor] 20 mg PO HS 01/03/22 01/03/22 History ondansetron HCL [Zofran] 8 mg PO Q8H PRN 01/03/22 01/03/22 History oxyCODONE HCL [OxyIR] 7.5 mg PO Q4H PRN 01/03/22 01/03/22 History polyethylene glycoL 3350 [Miralax] 17 gm PO DAILY 01/03/22 01/03/22 History Allergies Allergy/AdvReac Type Severity Reaction Status Date / Time amoxicillin [From Augmentin] Allergy Unknown Verified 01/03/22 18:05 clavulanic acid Allergy Unknown Verified 01/03/22 18:05 [From Augmentin] erythromycin base Allergy Unknown Verified 01/03/22 18:05 metformin Allergy Unknown Verified 01/03/22 18:05 propoxyphene AdvReac Nausea & Verified 01/03/22 18:04 [From Darvocet-N] Vomiting sodium acetate trihydrate Allergy Unknown Uncoded 01/03/22 18:05 Physical Exam Vitals: Vital Signs Temp Pulse Pulse Resp BP BP Pulse Ox 01/04/22 09:41 101 H 100/48 01/04/22 08:56 97.3 F L 105 H 81/61 96 01/04/22 07:12 103 H 01/04/22 02:00 97.6 F 103 H 17 131/98 95 01/03/22 21:00 98.2 F 107 H 17 92/48 91 L 01/03/22 20:00 98 16 112/57 96 01/03/22 18:41 105 H 18 111/66 96 01/03/22 16:45 95.4 F L 107 H 20 104/48 95 Intake and Output 01/03/22 01/04/22 01/04/22 22:59 06:59 14:59 Output Total 5 Balance -5 Output: Urine 5 Other: Voiding Method Bedside Commode Bedside Commode # Voids 1 # Bowel Movements 0 Weight 81.647 kg Results CBC & Chem 7: 01/03/22 17:26 01/03/22 17:26 Labs: Abnormal Lab Results - Last 24 Hours (Table) 01/03/22 01/03/22 01/03/22 Range/Units 16:50 17:26 17:26 WBC 20.6 H (3.8-10.6) k/uL MCHC 30.9 L (31.0-37.0) g/dL Neutrophils # 15.4 H (1.3-7.7) k/uL APTT 31.3 H (22.0-30.0) sec Sodium (137-145) mmol/L Potassium (3.5-5.1) mmol/L Chloride (98-107) mmol/L Carbon Dioxide (22-30) mmol/L BUN (7-17) mg/dL Creatinine (0.52-1.04) mg/dL Glucose (74-99) mg/dL POC Glucose (mg/dL) 115 H (75-99) mg/dL Plasma Lactic Acid Gui (0.7-2.0) mmol/L AST (14-36) U/L Alkaline Phosphatase (38-126) U/L Total Protein (6.3-8.2) g/dL Albumin (3.5-5.0) g/dL 01/03/22 01/03/22 01/03/22 Range/Units 17:26 17:26 23:55 WBC (3.8-10.6) k/uL MCHC (31.0-37.0) g/dL Neutrophils # (1.3-7.7) k/uL APTT (22.0-30.0) sec Sodium 126 L (137-145) mmol/L Potassium 5.6 H (3.5-5.1) mmol/L Chloride 97 L (98-107) mmol/L Carbon Dioxide 16 L (22-30) mmol/L BUN 32 H (7-17) mg/dL Creatinine 1.42 H (0.52-1.04) mg/dL Glucose 122 H (74-99) mg/dL POC Glucose (mg/dL) 101 H (75-99) mg/dL Plasma Lactic Acid Gui 2.1 H* (0.7-2.0) mmol/L AST 53 H (14-36) U/L Alkaline Phosphatase 160 H (38-126) U/L Total Protein 5.4 L (6.3-8.2) g/dL Albumin 2.7 L (3.5-5.0) g/dL Thrombosis Risk Factor Assmnt - Choose All That Apply Each Risk Factor Represents 2 Points: Age 61-74 years, Malignancy Thrombosis Risk Factor Assessment Total Risk Factor Score: 4 Thrombosis Risk Factor Assessment Level: Moderate Risk
[2022-01-04] MEDS: DEXTROSE 5% IN WATER 1,000 ML with SODIUM BICARB (1 MEQ/ML) 100 ML IV SCH (14:58)
[2022-01-04] MEDS: IPRATROPIUM-ALBUTEROL 3 ML NEB INHALATION SCH ×2 (16:33→19:45)
[2022-01-04 17:08] LABS: Glucose,Whole Blood 170 mg/dL (75-99)
[2022-01-04] MEDS: INSULIN ASPART (NovoLOG) 100 UNIT/ML VIAL SQ SCH (17:19)
[2022-01-04 18:08] LABS: Appearance,Urine Cloudy (Clear); Bacteria,Urine Rare /hpf; Bilirubin,Urine 1+ (Negative); Blood,Urine Moderate (Negative); Color,Urine Yellow; Glucose,Urine (UA) Negative (Negative); Hyaline Casts,Urine 7 /lpf (0-2); Ketones,Urine 1+ (Negative); Leukocyte Esterase,Urine Trace (Negative); Mucus,Urine Rare /hpf; Nitrite,Urine Negative (Negative); Protein,Urine 1+ (Negative); RBC,Urine 3 /hpf (0-5); Specific Gravity,Urine 1.028 (1.001-1.035); Squamous Epithelial Cell,Urine 3 /hpf (0-4); WBC,Urine 10 /hpf (0-5)
--- NOTE | 2022-01-04 18:16 | CONS ---
CONSULTATION DATE OF SERVICE: 01/04/2022 REASON FOR THE CONSULTATION: Metastatic uterine cancer with a history of brain metastases. HISTORY OF PRESENT ILLNESS: Alka Isbell is a 71-year-old female who has a history of stage IV uterine cancer. The patient has been undergoing treatment with Gynecologic Oncology. The patient underwent systemic chemotherapy. She has recently been switched to Keytruda. The patient presented to the hospital with nausea, weakness, intractable vomiting. The patient had multiple tests, including imaging studies that revealed multiple pulmonary masses. The patient has a history of ascites. The patient was noted to have brain metastasis. PAST MEDICAL HISTORY: 1. GERD. 2. Uterine cancer as per HPI. 3. Insulin-dependent diabetes. 4. Hypertension. PAST SURGICAL HISTORY: [facility]. MEDICATIONS: Tylenol, budesonide, calcium carbonate, dexamethasone, famotidine, Lovenox, hydrocodone, insulin, DuoNeb, Ativan, Narcan, Zofran, oxycodone, extended-release OxyContin. ALLERGIES: AMOXICILLIN, AUGMENTIN, ERYTHROMYCIN, METFORMIN, DARVOCET AND SODIUM ACETATE. SOCIAL HISTORY: The patient lives in her own home. She is accompanied by her two daughters. The patient has been undergoing care by her family. She denies significant history of tobacco or alcohol abuse. FAMILY HISTORY: Noncontributory. REVIEW OF SYSTEMS: Ms. Isbell lives in her own home. She denies significant history of tobacco or alcohol abuse. PHYSICAL EXAMINATION: Ms. Isbell is an elderly obese female resting in a hospital bed. She does have evidence of ascites. The patient's temperature is 97.3, pulse is 100, BP is 81/61. PO2 is 96% on 2 L by nasal cannula. She has diffuse alopecia of the scalp. Head and neck examination reveals no cervical or supraclavicular lymphadenopathy. Lungs reveal decreased breath sounds at the bases of the lungs bilaterally. Heart: RRR of the heart sounds. Abdomen is benign with no masses or organomegaly. Extremity examination reveals full range of motion. No cyanosis, clubbing or edema detected. Neurologic examination reveals cranial nerves 2 through 12 intact. Strength and sensation intact. Deep intact. Skin/integument examination reveals no lesions. Psychiatric evaluation reveals no mood disorders. Neurologic examination does appear to be grossly intact. IMPRESSION: Alka Isbell is a 71-year-old female with a history of metastatic adenocarcinoma involving the lungs and the brain. The patient presented with intractable nausea and vomiting which may very well be related to the brain metastasis identified on recent imaging. The patient otherwise has problems, includin. Insulin-dependent diabetes. 2. Hypertension. 3. Intractable vomiting and nausea. 4. Anemia. 5. Hypotension. Pain scale evaluation zero. Pain medication: None. PLAN: The patient and I discussed results of recent testing. This appears to show evidence of brain metastasis. The patient has been undergoing systemic therapy. She did undergo evaluation with Medical Oncology. The patient and I discussed the results of her recent testing. Potentially the patient may benefit from palliative radiation treatment. We will re- evaluate the patient and we will discuss the case with Medical Oncology. Likely the patient would benefit from a short course of radiation treatment. Thank you again for allowing me to participate in the care of Alka Isbell. TI / JETT: [id number] /
[2022-01-04] MEDS: BUDESONIDE 1 MG/2 ML NEBU INHALATION SCH (20:10)
[2022-01-04 20:34] LABS: Glucose,Whole Blood 140 mg/dL (75-99)
[2022-01-05] MEDS: DEXTROSE 5% IN WATER 1,000 ML with SODIUM BICARB (1 MEQ/ML) 100 ML IV SCH ×2 (03:48→12:29)
[2022-01-05 05:32] LABS: African American GFR (CKD) 49 (>60 ml/min/1.73 sqM); Anion Gap 5 mmol/L; Blood Urea Nitrogen 37 mg/dL (7-17); Calcium 8.1 mg/dL (8.4-10.2); Carbon Dioxide 25 mmol/L (22-30); Chloride 93 mmol/L (98-107); Glucose 146 mg/dL (74-99); Non-African American GFR(CKD) 42 (>60 ml/min/1.73 sqM); Sodium 123 mmol/L (137-145)
[2022-01-05 06:55] LABS: Glucose,Whole Blood 183 mg/dL (75-99)
[2022-01-05] MEDS: BUDESONIDE 1 MG/2 ML NEBU INHALATION SCH ×2 (08:04→19:19)
[2022-01-05] MEDS: IPRATROPIUM-ALBUTEROL 3 ML NEB INHALATION SCH ×4 (08:04→19:19)
[2022-01-05] MEDS: ENOXAPARIN 30 MG/0.3 ML SYRINGE SQ SCH (08:14)
[2022-01-05] MEDS: oxyCODONE ER 10 MG TAB.ER.12H PO SCH (08:14)
[2022-01-05] MEDS: INSULIN ASPART (NovoLOG) 100 UNIT/ML VIAL SQ SCH ×3 (08:15→16:49)
[2022-01-05] MEDS: dexAMETHasone 4 MG TAB PO SCH ×2 (08:16→19:30)
[2022-01-05] MEDS: HYDROmorphone 0.5 MG/0.5 ML SYRINGE IVP PRN ×5 (08:57→20:56)
--- NOTE | 2022-01-05 09:12 | P.CONS ---
History of Present Illness - Reason for Consult Consult date: 01/04/22 Metastatic uterine cancer Requesting physician: Patience Hayward - Chief Complaint Fall - History of Present Illness Mrs. Dawson is a very pleasant 71-year-old female with PMH including DMII, HTN, hyperlipidemia, chronic pain on narcotics, who was brought to the ER via EMS, she reported on arrival that her legs gave out, she fell and hit her head. She reported to us that she was at home, was getting up from commode and unfortunately used her walker to brace herself and proceeded to fall forward. She denies any dizziness or syncope prior to the episode. She had been inpt at [facility] for several days and was just recently discharged. Xray of the shoulder did not show fracture or dislocation. Patient is currently on every 3 week keytruda treatment. She has paracentesis x 2 twice in 1 week, 2-3 L each time. She had an elevated potassium of 5.6 on admit, sodium 126, lactic acid increased at 2.1-normal today. CXR, pulm nodules c/w met disease. CT brain wit h concerning findings in the lt frontal lobe, suspicious for mets. Covid negative. Denies any PIERCE, chest pain, shortness of breath, cough, abdominal pain, nausea, vomiting, change in bowel or bladder, pain or swelling. Review of Systems 14 point review of systems is negative except stated in HPI Past Medical History Past Medical History: Cancer, Diabetes Mellitus, Hypertension Additional Past Medical History / Comment(s): kidney dx stage 4. liver issues. uterine cx with mets to liver and kidney. hypercholestremia History of Any Multi-Drug Resistant Organisms: None Reported Past Surgical History: Tubal Ligation Additional Past Surgical History / Comment(s): eye surgery Past Anesthesia/Blood Transfusion Reactions: No Reported Reaction Past Psychological History: No Psychological Hx Reported Smoking Status: Never smoker Past Alcohol Use History: None Reported Past Drug Use History: None Reported Medications and Allergies Home Medications Medication Instructions Recorded Confirmed Type Acetaminophen Tab [Tylenol] 975 mg PO Q6H PRN 01/03/22 01/03/22 History Ascorbic Acid [Vitamin C] 2,000 mg PO DAILY 01/03/22 01/03/22 History Cholecalciferol [Vitamin D3 (25 25 mcg PO DAILY 01/03/22 01/03/22 History Mcg = 1000 Iu)] Dulaglutide [Trulicity] 0.75 mg SQ MO 01/03/22 01/03/22 History Losartan [Cozaar] 12.5 mg PO HS 01/03/22 01/03/22 History Magnesium Hydroxide [Milk of 2,400 mg PO HS PRN 01/03/22 01/03/22 History Magnesia] Metoprolol Tartrate [Lopressor] 12.5 mg PO BID 01/03/22 01/03/22 History Simethicone Chew [Mylicon Chew] 80 mg PO QID PRN 01/03/22 01/03/22 History Simvastatin [Zocor] 20 mg PO HS 01/03/22 01/03/22 History ondansetron HCL [Zofran] 8 mg PO Q8H PRN 01/03/22 01/03/22 History oxyCODONE HCL [OxyIR] 7.5 mg PO Q4H PRN 01/03/22 01/03/22 History polyethylene glycoL 3350 [Miralax] 17 gm PO DAILY 01/03/22 01/03/22 History Allergies Allergy/AdvReac Type Severity Reaction Status Date / Time amoxicillin [From Augmentin] Allergy Unknown Verified 01/03/22 18:05 clavulanic acid Allergy Unknown Verified 01/03/22 18:05 [From Augmentin] erythromycin base Allergy Unknown Verified 01/03/22 18:05 metformin Allergy Unknown Verified 01/03/22 18:05 propoxyphene AdvReac Nausea & Verified 01/03/22 18:04 [From Darvocet-N] Vomiting sodium acetate trihydrate Allergy Unknown Uncoded 01/03/22 18:05 Physical Exam Vitals: Vital Signs Temp Pulse Pulse Resp BP BP Pulse Ox 01/04/22 09:41 101 H 100/48 01/04/22 08:56 97.3 F L 105 H 81/61 96 01/04/22 07:12 103 H 01/04/22 02:00 97.6 F 103 H 17 131/98 95 01/03/22 21:00 98.2 F 107 H 17 92/48 91 L 01/03/22 20:00 98 16 112/57 96 01/03/22 18:41 105 H 18 111/66 96 01/03/22 16:45 95.4 F L 107 H 20 104/48 95 Intake and Output 01/03/22 01/04/22 01/04/22 22:59 06:59 14:59 Output Total 5 Balance -5 Output: Urine 5 Other: Voiding Method Bedside Commode Bedside Commode # Voids 1 # Bowel Movements 0 Weight 81.647 kg - Constitutional General appearance: average body habitus, cooperative, no acute distress - EENT Eyes: anicteric sclerae, EOMI ENT: hearing grossly normal, normal oropharynx - Neck Neck: no lymphadenopathy - Respiratory Respiratory: bilateral: CTA - Cardiovascular Rhythm: regular Heart sounds: normal: S1, S2 Abnormal Heart Sounds: no systolic murmur, no diastolic murmur, no rub, no S3 Gallop, no S4 Gallop, no click, no other leg Peripheral Edema: bilateral: None - Gastrointestinal General gastrointestinal: no absent bowel sounds, no decreased bowel sounds, distended (Mild), no hepatomegaly, no hyperactive bowel sounds, normal bowel sounds, no organomegaly, no rigid, no scaphoid, soft, no splenomegaly, no tenderness, no umbilical hernia, no ventral hernia - Integumentary Integumentary: normal - Neurologic Neurologic: CNII-XII intact - Musculoskeletal Musculoskeletal: strength equal bilaterally - Psychiatric Psychiatric: A&O x's 3, appropriate affect, intact judgment & insight Results CBC & Chem 7: 01/03/22 17:26 01/05/22 03:51 Labs: Abnormal Lab Results - Last 24 Hours (Table) 01/03/22 01/03/22 01/03/22 Range/Units 16:50 17:26 17:26 WBC 20.6 H (3.8-10.6) k/uL MCHC 30.9 L (31.0-37.0) g/dL Neutrophils # 15.4 H (1.3-7.7) k/uL APTT 31.3 H (22.0-30.0) sec Sodium (137-145) mmol/L Potassium (3.5-5.1) mmol/L Chloride (98-107) mmol/L Carbon Dioxide (22-30) mmol/L BUN (7-17) mg/dL Creatinine (0.52-1.04) mg/dL Glucose (74-99) mg/dL POC Glucose (mg/dL) 115 H (75-99) mg/dL Plasma Lactic Acid Gui (0.7-2.0) mmol/L AST (14-36) U/L Alkaline Phosphatase (38-126) U/L Total Protein (6.3-8.2) g/dL Albumin (3.5-5.0) g/dL 01/03/22 01/03/22 01/03/22 Range/Units 17:26 17:26 23:55 WBC (3.8-10.6) k/uL MCHC (31.0-37.0) g/dL Neutrophils # (1.3-7.7) k/uL APTT (22.0-30.0) sec Sodium 126 L (137-145) mmol/L Potassium 5.6 H (3.5-5.1) mmol/L Chloride 97 L (98-107) mmol/L Carbon Dioxide 16 L (22-30) mmol/L BUN 32 H (7-17) mg/dL Creatinine 1.42 H (0.52-1.04) mg/dL Glucose 122 H (74-99) mg/dL POC Glucose (mg/dL) 101 H (75-99) mg/dL Plasma Lactic Acid Gui 2.1 H* (0.7-2.0) mmol/L AST 53 H (14-36) U/L Alkaline Phosphatase 160 H (38-126) U/L Total Protein 5.4 L (6.3-8.2) g/dL Albumin 2.7 L (3.5-5.0) g/dL Chest x-ray: report reviewed CT scan - abdomen: report reviewed CT Scan - head: report reviewed CT scan - pelvis: report reviewed Assessment and Plan (1) Fall Narrative/Plan: Fall, sounds accidental but, lactic on admit elevated, infection work up pending. Fluid given. Suspicious findings on CT head without contrast-need to contact Primary Oncologist to see if this is new finding. Current Visit: Yes Status: Acute Priority: High Code(s): W19.XXXA - UNSPECIFIED FALL, INITIAL ENCOUNTER SNOMED Code(s): 4117280 (2) Uterine cancer Narrative/Plan: Pt reports most recently on keytruda Q 3 weeks. Pending discussion with Primary Onc. Current Visit: Yes Status: Acute Priority: High Code(s): C55 - MALIGNANT NEOPLASM OF UTERUS, PART UNSPECIFIED SNOMED Code(s): 646716008 Plan: attests: I have performed H&P, seen and examined pt, developed impression and plan of care. Discussed with dictator. Agree with dictation, documented as a scribe.
[2022-01-05 11:18] LABS: Glucose,Whole Blood 148 mg/dL (75-99)
[2022-01-05] MEDS: SODIUM ZIRCONIUM CYCLOSILICATE 10 GM PACKET PO SCH ×3 (11:26→19:31)
--- NOTE | 2022-01-05 14:36 | P.PN ---
Progress Note - Text Progress Note Date: 01/05/22 Chief Complaint: Weakness leading to fall This is a pleasant 71-year-old patient who follows with Dr. Ritchie. Patient has a diagnosis of uterine cancer with metastatic cystoscopy of the lungs kidney liver diagnosed about 1 year ago. She follows with Dr. Mckinney out of [facility]. Patient has received 6 rounds of chemotherapy. Has been getting currently getting Keytruda. Patient was discharged from [facility] 2 days ago. Patient has increasing abdominal pain. Bloated. Appetite is poor. Denies any fever and chills. Normally a bowel movement every 3 days with a laxative. Does get short of breath. No cough. Feels rather weak. Patient got up from a chair at home and fell down falling on the right side hitting her shoulder and head. Did not pass out. She normally uses assistance to walk. She does not wish to continue her treatment down to [place] anymore and wants to establish locally. January 05: Still having significant abdominal and hip pain. OxyContin will be increased to 50 mg twice a day. Potassium running high. Lokelma and it 10 mg 3 times a day. Radiation oncology is looking at palliative radiation treatment. Add ensure. Decreased appetite. Active Medications Acetaminophen (Acetaminophen Tab 325 Mg Tab) 975 mg PO Q6H PRN PRN Reason: Mild Pain Albuterol/Ipratropium (Ipratropium-Albuterol 3 Ml Neb) 3 ml INHALATION RT-QID [facility] Last Admin: 01/05/22 11:36 Dose: 3 ml Documented by: Budesonide (Budesonide 1 Mg/2 Ml Nebu) 1 mg INHALATION RT-BID [facility] Last Admin: 01/05/22 08:04 Dose: 1 mg Documented by: Calcium Carbonate/Glycine (Calcium Carbonate 500 Mg Chewable) 1,000 mg PO Q4HR PRN PRN Reason: Dyspepsia Dexamethasone (Dexamethasone 4 Mg Tab) 4 mg PO BID [facility] Last Admin: 01/05/22 08:16 Dose: 4 mg Documented by: Enoxaparin Sodium (Enoxaparin 30 Mg/0.3 Ml Syringe) 30 mg SQ DAILY [facility] Last Admin: 01/05/22 08:14 Dose: 30 mg Documented by: Hydromorphone HCl (Hydromorphone 0.5 Mg/0.5 Ml Syringe) 0.5 mg IVP Q3HR PRN PRN Reason: Moderate Pain Last Admin: 01/05/22 13:27 Dose: 0.5 mg Documented by: Ceftriaxone Sodium 1 gm/ (Sodium Chloride) 50 mls @ 100 mls/hr IVPB Q12HR [facility]; Protocol Last Admin: 01/05/22 08:14 Dose: 100 mls/hr Documented by: Sodium Bicarbonate 100 ml/ (Dextrose/Water) 1,100 mls @ 100 mls/hr IV .Q11H [facility] Last Admin: 01/05/22 12:29 Dose: 100 mls/hr Documented by: Insulin Aspart (Insulin Aspart (Novolog) 100 Unit/Ml Vial) 0 unit SQ AC-TID [facility]; Protocol Last Admin: 01/05/22 11:30 Dose: 1 unit Documented by: Lactulose (Lactulose 20 Gm/30 Ml Cup) 20 gm PO DAILY PRN PRN Reason: Constipation Lorazepam (Lorazepam 0.5 Mg Tab) 0.5 mg PO Q6HR PRN PRN Reason: Anxiety Naloxone HCl (Naloxone 0.4 Mg/Ml 1 Ml Vial) 0.2 mg IV Q2M PRN PRN Reason: Opioid Reversal Ondansetron HCl (Ondansetron 4 Mg/2 Ml Vial) 4 mg IVP Q8HR PRN PRN Reason: Nausea And Vomiting Oxycodone HCl (Oxycodone Hcl 5 Mg Tab) 7.5 mg PO Q4H PRN PRN Reason: Moderate Pain Last Admin: 01/05/22 02:24 Dose: 7.5 mg Documented by: Oxycodone HCl (Oxycodone Er 15 Mg Tab.Er.12h) 15 mg PO Q12HR [facility]; Protocol Sodium Zirconium Cyclosilicate (Sodium Zirconium Cyclosilicate 10 Gm Packet) 10 gm PO TID [facility] Stop: 01/06/22 09:01 Last Admin: 01/05/22 11:26 Dose: 10 gm Documented by: Temazepam (Temazepam 15 Mg Cap) 15 mg PO HS PRN PRN Reason: Insomnia Past medical history to include: Metastatic uterine cancer treated with chemotherapy, diabetes, hypertension, CAD stage IV, hypercholesterolemia Social history: Patient smoked for over 40 years. Not currently. Lives with her daughter Indy was also the POA. Family history: Reviewed, noncontributory to presentation Physical examination: VITAL SIGNS: 97.8, 90, 19, 103/62, 98% room air GENERAL: , laying in bed, awake, uncomfortable EYES: Pupils equal. Conjunctiva palel. HEENT: External appearance of nose and ears normal, oral cavity grossly normal. NECK: JVD not raised; masses not palpable. HEART: First and second heart sounds are normal; no edema. LUNGS: Respiratory rate increased, decreased breath sounds. ABDOMEN: Soft, distended, Doughy tender, liver spleen not palpable, PSYCH: [Alert and oriented x3; mood and affect anxious MUSCULOSKELETAL:No Clubbing/cyanosis;muscles-grossly intact, some more INVESTIGATIONS, reviewed in the clinical context: January 05: Sodium 123 potassium 6 BUN 37 creatinine 1.29 White count 20.6 hemoglobin 13.6 platelets 342 sodium 126 potassium 5.6 bicarb 16 BUN 32 creatinine 1.4 to lactic acid 2.1 AST 53 ALT 13 albumin 2.7 COVID 19 PCF: Not detected EKG tracing personally reviewed by me-sinus rhythm, rate 106 Right shoulder: No fracture Chest x-ray film personally reviewed by me-scattered shadows infiltrates CT head: Area of vasogenic edema in the left frontal lobe suspicious of prostatic disease. DJD. 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 Patient was being followed by Dr. Steven Ritchie at [facility]. She wants to move her care here at [place] on. New Metastatic disease found of the brain . Possible palliative radiation in place.. dexamethasone 4 mg twice a day. -Fall due to worsening medical debility Fall precautions -Acute on chronic abdominal pain that is progressive from metastatic disease intra-abdominally with taking of the omentum and other organs.: Not improving Increase OxyContin 15 mg ER twice daily and when necessary pain medications -Acute kidney injury. Baseline kidney function not known. Suspect prerenal.: Slow to respond Hold Cozaar. IV fluids -Metabolic acidosis due to kidney injury: Corrected IV sodium bicarbonate drip-discontinued -Hyperkalemia secondary to renal failure: Worsening Lokelma. 10 mg 3 times a day. Renal diet -Hyperlipidemia Zocor 20 mg daily at bedtime -Diabetes mellitus type 2 Follow Accu-Cheks with sliding scale insulin -Vasogenic edema in the brain Dexamethasone 4 mg twice a day -Hypotension from volume loss. Hold Lopressor and Cozaar. IV fluids -DO NOT RESUSCITATE DC sodium bicarbonate drip. Start normal saline. Add Ensure. Lokelma schedule. Increase OxyContin to 15 twice a day. Follow labs.
[2022-01-05] MEDS: SODIUM CHLORIDE 0.9% 1,000 ML IV SCH (14:48)
[2022-01-05 16:14] LABS: Glucose,Whole Blood 159 mg/dL (75-99)
[2022-01-05] MEDS: oxyCODONE ER 15 MG TAB.ER.12H PO SCH (19:30)
[2022-01-05 20:22] LABS: Glucose,Whole Blood 183 mg/dL (75-99)
--- NOTE | 2022-01-05 21:31 | P.PN ---
Subjective Progress Note Date: 01/05/22 Principal diagnosis: fall In f/u today pt is c/o hip pain, she is needing assistance to adjust her self in the bed. Denies any other neurological symptoms. Objective - Vital Signs Vital signs: Vital Signs Temp 97.6 F 01/05/22 14:00 Pulse 88 01/05/22 16:11 Resp 18 01/05/22 16:11 BP 91/53 01/05/22 14:00 Pulse Ox 97 01/05/22 14:00 Intake & Output 01/05/22 01/05/22 01/06/22 06:59 18:59 06:59 Intake Total 50 Balance 50 Intake: Intake, IV Titration 50 Amount cefTRIAXone 1 gm In 50 Sodium Chloride 0.9% 50 ml @ 100 mls/hr IVPB Q12HR [facility] Rx#:[id number] Other: Voiding Method Bedside Commode Bedside Commode # Voids 1 1 # Bowel Movements 1 - Constitutional General appearance: Present: cooperative, mild distress, obese - EENT Eyes: Present: anicteric sclerae, EOMI ENT: Present: hearing grossly normal - Respiratory Respiratory: bilateral: CTA - Cardiovascular Rhythm: regular Heart sounds: normal: S1, S2 Abnormal Heart Sounds: Absent: systolic murmur, diastolic murmur, rub, S3 Gallop, S4 Gallop, click, other - Peripheral edema leg Peripheral Edema: bilateral: None - Gastrointestinal General gastrointestinal: Present: distended, normal bowel sounds, soft - Integumentary Integumentary: Present: normal - Neurologic Neurologic: Present: CNII-XII intact (grossly) - Musculoskeletal Musculoskeletal: Present: generalized weakness - Psychiatric Psychiatric: Present: A&O x's 3, appropriate affect, intact judgment & insight - Labs CBC & Chem 7: 01/03/22 17:26 01/05/22 03:51 Labs: Abnormal Lab Results - Last 24 Hours (Table) 01/05/22 01/05/22 01/05/22 Range/Units 03:51 06:54 11:17 Sodium 123 L (137-145) mmol/L Potassium 6.0 H (3.5-5.1) mmol/L Chloride 93 L (98-107) mmol/L BUN 37 H (7-17) mg/dL Creatinine 1.29 H (0.52-1.04) mg/dL Glucose 146 H (74-99) mg/dL POC Glucose (mg/dL) 183 H 148 H (75-99) mg/dL Calcium 8.1 L (8.4-10.2) mg/dL 01/05/22 01/05/22 Range/Units 16:13 20:21 Sodium (137-145) mmol/L Potassium (3.5-5.1) mmol/L Chloride (98-107) mmol/L BUN (7-17) mg/dL Creatinine (0.52-1.04) mg/dL Glucose (74-99) mg/dL POC Glucose (mg/dL) 159 H 183 H (75-99) mg/dL Calcium (8.4-10.2) mg/dL Assessment and Plan (1) Fall Narrative/Plan: Fall, sounds accidental but, lactic on admit elevated, infection work up pending. Fluid given. Suspicious findings on CT head without contrast. Dr. Elder has seen pt and reviewed image-this is new. Current Visit: Yes Status: Acute Priority: High Code(s): W19.XXXA - UNSPECIFIED FALL, INITIAL ENCOUNTER SNOMED Code(s): 1040022 (2) Uterine cancer Narrative/Plan: Pt reports most recently on keytruda Q [address] Elder notes, mets to brain is new finding. He has discussed the possibility of radiation with pt. I will discuss case with Dr. Elder further. Pending discussion with Primary Onc. Spoke to his RN this AM. Have to contact different ofc for notes. Cont 4mg dex bid Current Visit: Yes Status: Acute Priority: High Code(s): C55 - MALIGNANT NEOPLASM OF UTERUS, PART UNSPECIFIED SNOMED Code(s): 657654299 Plan: attests: I have performed H&P, seen and examined pt, developed impression and plan of care. Discussed with dictator. Agree with dictation, documented as a scribe.
[2022-01-06] MEDS: HYDROmorphone 0.5 MG/0.5 ML SYRINGE IVP PRN ×2 (03:36→09:19)
[2022-01-06 04:32] LABS: African American GFR (CKD) 42 (>60 ml/min/1.73 sqM); Anion Gap 11 mmol/L; Blood Urea Nitrogen 39 mg/dL (7-17); Calcium 8.7 mg/dL (8.4-10.2); Carbon Dioxide 23 mmol/L (22-30); Chloride 91 mmol/L (98-107); Glucose 138 mg/dL (74-99); Non-African American GFR(CKD) 37 (>60 ml/min/1.73 sqM); Potassium 5.4 mmol/L (3.5-5.1); Sodium 125 mmol/L (137-145)
[2022-01-06] MEDS: SODIUM CHLORIDE 0.9% 1,000 ML IV SCH ×3 (06:54→23:52)
[2022-01-06 06:56] LABS: Glucose,Whole Blood 130 mg/dL (75-99)
[2022-01-06] MEDS: INSULIN ASPART (NovoLOG) 100 UNIT/ML VIAL SQ SCH ×4 (07:00→21:28)
[2022-01-06] MEDS: CALCIUM CARBONATE 500 MG CHEWABLE PO PRN ×2 (07:24→23:21)
[2022-01-06] MEDS: dexAMETHasone 4 MG TAB PO SCH ×3 (08:41→21:40)
[2022-01-06] MEDS: SODIUM ZIRCONIUM CYCLOSILICATE 10 GM PACKET PO SCH ×4 (08:41→21:30)
[2022-01-06] MEDS: oxyCODONE ER 15 MG TAB.ER.12H PO SCH (08:41)
[2022-01-06] MEDS: ENOXAPARIN 30 MG/0.3 ML SYRINGE SQ SCH (08:43)
[2022-01-06] MEDS: IPRATROPIUM-ALBUTEROL 3 ML NEB INHALATION SCH ×4 (09:03→20:51)
[2022-01-06] MEDS: BUDESONIDE 1 MG/2 ML NEBU INHALATION SCH ×2 (09:03→20:51)
[2022-01-06 11:30] LABS: Glucose,Whole Blood 158 mg/dL (75-99)
--- NOTE | 2022-01-06 13:12 | P.PN ---
Progress Note - Text Progress Note Date: 01/06/22 Chief Complaint: Weakness leading to fall This is a pleasant 71-year-old patient who follows with Dr. Ritchie. Patient has a diagnosis of uterine cancer with metastatic cystoscopy of the lungs kidney liver diagnosed about 1 year ago. She follows with Dr. Mckinney out of [facility]. Patient has received 6 rounds of chemotherapy. Has been getting currently getting Keytruda. Patient was discharged from [facility] 2 days ago. Patient has increasing abdominal pain. Bloated. Appetite is poor. Denies any fever and chills. Normally a bowel movement every 3 days with a laxative. Does get short of breath. No cough. Feels rather weak. Patient got up from a chair at home and fell down falling on the right side hitting her shoulder and head. Did not pass out. She normally uses assistance to walk. She does not wish to continue her treatment down to [place] anymore and wants to establish locally. January 05: Still having significant abdominal and hip pain. OxyContin will be increased to 15 mg twice a day. Potassium running high. Lokelma and it 10 mg 3 times a day. Radiation oncology is looking at palliative radiation treatment. Add ensure. Decreased appetite. January 06: Decreased appetite. Significant nausea. Received 1 dose of Dilaudid earlier. Since dose of OxyContin was increased yesterday that she be cut back to 10 mg twice daily. Discussed with patient. Pending possible radiation treatment to the brain. Tired. Laying in bed. Active Medications Acetaminophen (Acetaminophen Tab 325 Mg Tab) 975 mg PO Q6H PRN PRN Reason: Mild Pain Albuterol/Ipratropium (Ipratropium-Albuterol 3 Ml Neb) 3 ml INHALATION RT-QID [facility] Last Admin: 01/06/22 12:17 Dose: Not Given Documented by: Budesonide (Budesonide 1 Mg/2 Ml Nebu) 1 mg INHALATION RT-BID [facility] Last Admin: 01/06/22 09:03 Dose: Not Given Documented by: Calcium Carbonate/Glycine (Calcium Carbonate 500 Mg Chewable) 1,000 mg PO Q4HR PRN PRN Reason: Dyspepsia Last Admin: 01/06/22 07:24 Dose: 1,000 mg Documented by: Dexamethasone (Dexamethasone 4 Mg Tab) 4 mg PO BID [facility] Last Admin: 01/06/22 08:41 Dose: 4 mg Documented by: Enoxaparin Sodium (Enoxaparin 30 Mg/0.3 Ml Syringe) 30 mg SQ DAILY [facility] Last Admin: 01/06/22 08:43 Dose: 30 mg Documented by: Hydromorphone HCl (Hydromorphone 0.5 Mg/0.5 Ml Syringe) 0.5 mg IVP Q3HR PRN PRN Reason: Moderate Pain Last Admin: 01/06/22 09:19 Dose: 0.5 mg Documented by: Ceftriaxone Sodium 1 gm/ (Sodium Chloride) 50 mls @ 100 mls/hr IVPB Q12HR [facility]; Protocol Last Admin: 01/06/22 08:43 Dose: 100 mls/hr Documented by: Sodium Chloride (Saline 0.9%) 1,000 mls @ 75 mls/hr IV .[id number] [facility] Last Admin: 01/06/22 06:54 Dose: Not Given Documented by: Insulin Aspart (Insulin Aspart (Novolog) 100 Unit/Ml Vial) 0 unit SQ AC-TID [facility]; Protocol Last Admin: 01/06/22 12:40 Dose: Not Given Documented by: Lactulose (Lactulose 20 Gm/30 Ml Cup) 20 gm PO DAILY PRN PRN Reason: Constipation Lorazepam (Lorazepam 0.5 Mg Tab) 0.5 mg PO Q6HR PRN PRN Reason: Anxiety Naloxone HCl (Naloxone 0.4 Mg/Ml 1 Ml Vial) 0.2 mg IV Q2M PRN PRN Reason: Opioid Reversal Ondansetron HCl (Ondansetron 4 Mg/2 Ml Vial) 4 mg IVP Q8HR PRN PRN Reason: Nausea And Vomiting Last Admin: 01/06/22 06:24 Dose: 4 mg Documented by: Oxycodone HCl (Oxycodone Hcl 5 Mg Tab) 7.5 mg PO Q4H PRN PRN Reason: Moderate Pain Last Admin: 01/06/22 06:23 Dose: 7.5 mg Documented by: Oxycodone HCl (Oxycodone Er 10 Mg Tab.Er.12h) 10 mg PO Q12HR [facility]; Protocol Temazepam (Temazepam 15 Mg Cap) 15 mg PO HS PRN PRN Reason: Insomnia Past medical history to include: Metastatic uterine cancer treated with chemotherapy, diabetes, hypertension, CAD stage IV, hypercholesterolemia Social history: Patient smoked for over 40 years. Not currently. Lives with her daughter Indy was also the POA. Family history: Reviewed, noncontributory to presentation Physical examination: VITAL SIGNS: 97.4, 86, 18, 114-72, 96% on 2 L GENERAL:laying in bed, awake, uncomfortable EYES: Pupils equal. Conjunctiva palel. HEENT: External appearance of nose and ears normal, oral cavity grossly normal. NECK: JVD not raised; masses not palpable. HEART: First and second heart sounds are normal; no edema. LUNGS: Respiratory rate increased, decreased breath sounds. ABDOMEN: Soft, distended, Doughy tender, liver spleen not palpable, PSYCH: [Alert and oriented x3; mood and affect anxious MUSCULOSKELETAL:No Clubbing/cyanosis;muscles-grossly intact, some more INVESTIGATIONS, reviewed in the clinical context: January 06: Sodium 125 potassium 5.4 BUN 39 creatinine 1.45 January 05: Sodium 123 potassium 6 BUN 37 creatinine 1.29 White count 20.6 hemoglobin 13.6 platelets 342 sodium 126 potassium 5.6 bicarb 16 BUN 32 creatinine 1.4 to lactic acid 2.1 AST 53 ALT 13 albumin 2.7 COVID 19 PCF: Not detected EKG tracing personally reviewed by me-sinus rhythm, rate 106 Right shoulder: No fracture Chest x-ray film personally reviewed by me-scattered shadows infiltrates CT head: Area of vasogenic edema in the left frontal lobe suspicious of prostatic disease. DJD. 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 Patient was being followed by Dr. Steven Ritchie at [facility]. She wants to move her care here at [place] on. New Metastatic disease found of the brain . Possible palliative radiation in place.. dexamethasone 4 mg twice a day. -Fall due to worsening medical debility Fall precautions -Acute on chronic abdominal pain that is progressive from metastatic disease intra-abdominally with taking of the omentum and other organs.: Not improving Decrease OxyContin 10 mg ER twice daily because of nausea -Acute kidney injury. Baseline kidney function not known. Suspect prerenal.: Worsening Hold Cozaar. Increase IV fluids -Metabolic acidosis due to kidney injury: Corrected IV sodium bicarbonate drip-discontinued -Hyperkalemia secondary to renal failure: Improving Lokelma. 10 mg 3 times a day. Renal diet -Hyperlipidemia Zocor 20 mg daily at bedtime -Diabetes mellitus type 2 Follow Accu-Cheks with sliding scale insulin -Vasogenic edema in the brain Dexamethasone 4 mg twice a day -Hypotension from volume loss. Hold Lopressor and Cozaar. IV fluids -DO NOT RESUSCITATE Increase normal saline to 1 25 mL an hour.. . Lokelma schedule. Because of increasing nausea cutback OxyContin to 10 mg twice a day. Follow BMP.
[2022-01-06] MEDS ORDERED: SODIUM CHLORIDE 0.9% 1,000 ML IV SCH (16:00)
[2022-01-06 16:09] LABS: Glucose,Whole Blood 198 mg/dL (75-99)
--- NOTE | 2022-01-06 16:19 | P.PN ---
Subjective Progress Note Date: 01/06/22 Principal diagnosis: fall In f/u today pt is c/o hip pain, she is needing assistance to adjust her self in the bed. Denies any other neurological symptoms. Objective - Vital Signs Vital signs: Vital Signs Temp 97.4 F L 01/06/22 13:41 Pulse 111 H 01/06/22 13:41 Resp 18 01/06/22 13:41 BP 110/73 01/06/22 13:41 Pulse Ox 92 L 01/06/22 13:41 Intake & Output 01/05/22 01/06/22 01/06/22 18:59 06:59 18:59 Intake Total 50 Balance 50 Intake: Intake, IV Titration 50 Amount cefTRIAXone 1 gm In 50 Sodium Chloride 0.9% 50 ml @ 100 mls/hr IVPB Q12HR [facility] Rx#:[id number] Other: Voiding Method Bedside Commode Bedside Commode # Voids 1 1 - Constitutional General appearance: Present: cooperative, mild distress, obese - EENT Eyes: Present: anicteric sclerae, EOMI, poor dentition ENT: Present: hearing grossly normal, thrush - Respiratory Respiratory: bilateral: CTA, diminished - Cardiovascular Rhythm: regular Heart sounds: normal: S1, S2 Abnormal Heart Sounds: Absent: systolic murmur, diastolic murmur, rub, S3 Gallop, S4 Gallop, click, other - Peripheral edema leg Peripheral Edema: bilateral: None - Gastrointestinal General gastrointestinal: Present: distended, soft, tenderness - Integumentary Integumentary: Present: pale - Neurologic Neurologic: Present: CNII-XII intact - Musculoskeletal Musculoskeletal: Present: generalized weakness - Psychiatric Psychiatric: Present: A&O x's 3, appropriate affect, intact judgment & insight - Labs CBC & Chem 7: 01/03/22 17:26 01/06/22 03:22 Labs: Abnormal Lab Results - Last 24 Hours (Table) 01/05/22 01/05/22 01/06/22 Range/Units 16:13 20:21 03:22 Sodium 125 L (137-145) mmol/L Potassium 5.4 H (3.5-5.1) mmol/L Chloride 91 L (98-107) mmol/L BUN 39 H (7-17) mg/dL Creatinine 1.45 H (0.52-1.04) mg/dL Glucose 138 H (74-99) mg/dL POC Glucose (mg/dL) 159 H 183 H (75-99) mg/dL 01/06/22 01/06/22 01/06/22 Range/Units 06:52 11:20 16:08 Sodium (137-145) mmol/L Potassium (3.5-5.1) mmol/L Chloride (98-107) mmol/L BUN (7-17) mg/dL Creatinine (0.52-1.04) mg/dL Glucose (74-99) mg/dL POC Glucose (mg/dL) 130 H 158 H 198 H (75-99) mg/dL Assessment and Plan (1) Fall Narrative/Plan: May be related to findings in the brain. Working on improving symptoms. Rad Onc pending MRI brain Current Visit: Yes Status: Acute Priority: High Code(s): W19.XXXA - UNSPECIFIED FALL, INITIAL ENCOUNTER SNOMED Code(s): 8932600 (2) Uterine cancer Narrative/Plan: Pt reports most recently on keytruda Q 3 weeks. Rad Onc has seen pt, mets to brain is new finding. They need MRI brain. Will order with missy, may have to wait for better creatinine. Dex increase to QID due to symptoms Current Visit: Yes Status: Acute Priority: High Code(s): C55 - MALIGNANT NEOPLASM OF UTERUS, PART UNSPECIFIED SNOMED Code(s): 979595237 (3) Thrush, oral Narrative/Plan: Kools with nystatin Current Visit: Yes Status: Acute Priority: Medium Code(s): B37.0 - CANDIDAL STOMATITIS SNOMED Code(s): 12634652
--- NOTE | 2022-01-06 17:14 | P.PN ---
Progress Note - Text Progress Note Date: 01/06/22 I discussed the consult for abdominal pain with the nurse. The patient has a large amount of ascites. This is causing her pain. She'll be scheduled for a consultation with interventional radiology for possible palliative paracentesis.
[2022-01-06] MEDS: MAG HYDROX/AL HYDROX/SIMETH 30 ML, LIDOCAINE VISCOUS 2% 30 ML, diphenhydrAMINE ELIXIR 7... PO SCH ×8 (17:26→21:29)
[2022-01-06 20:47] LABS: Glucose,Whole Blood 169 mg/dL (75-99)
[2022-01-06] MEDS: oxyCODONE ER 10 MG TAB.ER.12H PO SCH (21:28)
[2022-01-07] MEDS: ONDANSETRON 4 MG/2 ML VIAL IVP PRN ×2 (00:25→05:13)
[2022-01-07] MEDS: HYDROmorphone 0.5 MG/0.5 ML SYRINGE IVP PRN ×5 (02:15→21:09)
[2022-01-07 02:24] LABS: Glucose,Whole Blood 172 mg/dL (75-99)
[2022-01-07 07:10] LABS: African American GFR (CKD) 39 (>60 ml/min/1.73 sqM); Anion Gap 11 mmol/L; Blood Urea Nitrogen 43 mg/dL (7-17); Calcium 9.2 mg/dL (8.4-10.2); Carbon Dioxide 20 mmol/L (22-30); Chloride 95 mmol/L (98-107); Glucose 199 mg/dL (74-99); Non-African American GFR(CKD) 34 (>60 ml/min/1.73 sqM); Sodium 126 mmol/L (137-145)
[2022-01-07 07:12] LABS: Glucose,Whole Blood 223 mg/dL (75-99)
[2022-01-07 07:17] LABS: Potassium 4.8 mmol/L (3.5-5.1)
[2022-01-07] MEDS: SODIUM CHLORIDE 0.9% 1,000 ML IV SCH ×2 (07:33→13:41)
[2022-01-07] MEDS: BUDESONIDE 1 MG/2 ML NEBU INHALATION SCH ×3 (07:52→20:05)
[2022-01-07] MEDS: IPRATROPIUM-ALBUTEROL 3 ML NEB INHALATION SCH ×5 (07:53→20:16)
[2022-01-07] MEDS: oxyCODONE ER 10 MG TAB.ER.12H PO SCH ×2 (08:55→21:13)
[2022-01-07] MEDS: dexAMETHasone 4 MG TAB PO SCH ×4 (08:56→21:13)
[2022-01-07] MEDS: ENOXAPARIN 30 MG/0.3 ML SYRINGE SQ SCH (08:56)
[2022-01-07] MEDS: SODIUM ZIRCONIUM CYCLOSILICATE 10 GM PACKET PO SCH ×3 (08:57→21:13)
[2022-01-07 09:11] LABS: Glucose,Whole Blood 212 mg/dL (75-99)
[2022-01-07] MEDS: INSULIN ASPART (NovoLOG) 100 UNIT/ML VIAL SQ SCH ×4 (09:24→16:48)
[2022-01-07] MEDS: MAG HYDROX/AL HYDROX/SIMETH 30 ML, LIDOCAINE VISCOUS 2% 30 ML, diphenhydrAMINE ELIXIR 7... PO SCH ×12 (09:42→21:14)
--- NOTE | 2022-01-07 10:03 | XR ---
EXAMINATION TYPE: XR chest 1V DATE OF EXAM: 01/07/2022 COMPARISON: Chest x-ray 01/03/2022 HISTORY: Chest pain TECHNIQUE: Single frontal view of the chest is obtained. FINDINGS: Lung volumes are low. There is patchy density bilaterally within the lungs, blunting the c ostophrenic angles. Heart appears prominently possibly due to technique. There is a port present in t he right pectoral region, catheter is coursing towards the right atrium but is not well seen, there i s no evident pneumothorax. IMPRESSION: Probable effusions, expiratory exam. Associated atelectasis versus edema may be present, correlate to exclude pneumonia. Follow-up suggested
[2022-01-07 10:50] LABS: HCT 44.5 % (34.0-46.0); Hypochromasia Marked; MCH 31.1 pg (25.0-35.0); MCHC 29.3 g/dL (31.0-37.0); Macrocytosis Moderate; Mean Platelet Volume 10.7; Platelet Count 269 k/uL (150-450); RBC 4.19 m/uL (3.80-5.40); RDW 14.6 % (11.5-15.5); WBC 38.9 k/uL (3.8-10.6)
[2022-01-07 11:03] LABS: MCV 106.2 fL (80.0-100.0)
[2022-01-07 11:35] LABS: Glucose,Whole Blood 202 mg/dL (75-99)
[2022-01-07 12:16] LABS: Band Neutrophils % 5 %; Lymphocytes # (M) 10.11 k/uL (1.0-4.8); Monocytes # (M) 1.56 k/uL (0-1.0); Neutrophils % (M) 65 %; Nucleated Red Blood Cells 0 /100 WBC (0-0); Total Cells Counted 100
[2022-01-07] MEDS: CALCIUM CARBONATE 500 MG CHEWABLE PO PRN (12:52)
--- NOTE | 2022-01-07 12:58 | P.PN ---
Subjective Progress Note Date: 01/07/22 CHIEF COMPLAINT: Abdominal pain HISTORY OF PRESENT ILLNESS: Patient has a large amount of abdominal ascites she is scheduled for paracentesis today by interventional radiology. Also scheduled for MRI of the brain for further evaluation of possible metastases to the brain. Patient followed by oncology and Rad Onc. "Paty" was called early this morning for confusion, anxiety and chest pain. Patient was given medication that helped her calm down. PHYSICAL EXAM: VITAL SIGNS: Reviewed. GENERAL: Well-developed in no acute distress. HEENT: No sclera icterus. Extraocular movements grossly intact. Moist buccal mucosa. Head is atraumatic, normocephalic. ABDOMEN: Soft. distended. Ascites NEUROLOGIC: Lethargic and confused ASSESSMENT: 1. Abdominal pain 2. Ascites 3. 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 Signing provider agrees with the documented findings, assessment, and plan of care. Objective - Vital Signs Vital signs: Vital Signs Temp 97.5 F L 01/07/22 08:00 Pulse 116 H 01/07/22 09:39 Resp 30 H 01/07/22 11:23 BP 107/72 01/07/22 08:00 Pulse Ox 92 L 01/07/22 01:01 Intake & Output 01/06/22 01/07/22 01/07/22 18:59 06:59 18:59 Intake Total 300 200 Output Total 300 Balance 300 -300 200 Weight 81.647 kg Intake: Oral 300 200 Output: Urine 300 Other: Voiding Method Indwelling Catheter - Labs CBC & Chem 7: 01/07/22 06:44 01/07/22 06:44 Labs: Abnormal Lab Results - Last 24 Hours (Table) 01/06/22 01/06/22 01/07/22 Range/Units 16:08 20:44 02:22 WBC (3.8-10.6) k/uL MCV (80.0-100.0) fL MCHC (31.0-37.0) g/dL Neutrophils # (Manual) (1.3-7.7) k/uL Lymphocytes # (Manual) (1.0-4.8) k/uL Monocytes # (Manual) (0-1.0) k/uL Sodium (137-145) mmol/L Chloride (98-107) mmol/L Carbon Dioxide (22-30) mmol/L BUN (7-17) mg/dL Creatinine (0.52-1.04) mg/dL Glucose (74-99) mg/dL POC Glucose (mg/dL) 198 H 169 H 172 H (75-99) mg/dL 01/07/22 01/07/22 01/07/22 Range/Units 06:44 06:44 07:11 WBC 38.9 H (3.8-10.6) k/uL MCV 106.2 H D (80.0-100.0) fL MCHC 29.3 L (31.0-37.0) g/dL Neutrophils # (Manual) 27.20 H (1.3-7.7) k/uL Lymphocytes # (Manual) 10.11 H (1.0-4.8) k/uL Monocytes # (Manual) 1.56 H (0-1.0) k/uL Sodium 126 L (137-145) mmol/L Chloride 95 L (98-107) mmol/L Carbon Dioxide 20 L (22-30) mmol/L BUN 43 H (7-17) mg/dL Creatinine 1.56 H (0.52-1.04) mg/dL Glucose 199 H (74-99) mg/dL POC Glucose (mg/dL) 223 H (75-99) mg/dL 01/07/22 01/07/22 Range/Units 09:09 11:34 WBC (3.8-10.6) k/uL MCV (80.0-100.0) fL MCHC (31.0-37.0) g/dL Neutrophils # (Manual) (1.3-7.7) k/uL Lymphocytes # (Manual) (1.0-4.8) k/uL Monocytes # (Manual) (0-1.0) k/uL Sodium (137-145) mmol/L Chloride (98-107) mmol/L Carbon Dioxide (22-30) mmol/L BUN (7-17) mg/dL Creatinine (0.52-1.04) mg/dL Glucose (74-99) mg/dL POC Glucose (mg/dL) 212 H 202 H (75-99) mg/dL
--- NOTE | 2022-01-07 13:03 | P.PN ---
Progress Note - Text Progress Note Date: 01/07/22 Chief Complaint: Weakness leading to fall This is a pleasant 71-year-old patient who follows with Dr. Ritchie. Patient has a diagnosis of uterine cancer with metastatic cystoscopy of the lungs kidney liver diagnosed about 1 year ago. She follows with Dr. Mckinney out of [facility]. Patient has received 6 rounds of chemotherapy. Has been getting currently getting Keytruda. Patient was discharged from [facility] 2 days ago. Patient has increasing abdominal pain. Bloated. Appetite is poor. Denies any fever and chills. Normally a bowel movement every 3 days with a laxative. Does get short of breath. No cough. Feels rather weak. Patient got up from a chair at home and fell down falling on the right side hitting her shoulder and head. Did not pass out. She normally uses assistance to walk. She does not wish to continue her treatment down to [place] anymore and wants to establish locally. January 05: Still having significant abdominal and hip pain. OxyContin will be increased to 15 mg twice a day. Potassium running high. Lokelma and it 10 mg 3 times a day. Radiation oncology is looking at palliative radiation treatment. Add ensure. Decreased appetite. January 06: Decreased appetite. Significant nausea. Received 1 dose of Dilaudid earlier. Since dose of OxyContin was increased yesterday that she be cut back to 10 mg twice daily. Discussed with patient. Pending possible radiation treatment to the brain. Tired. Laying in bed. January 07: Continues to feel weak and tired. A bit short of breath. Some pleural effusion on the chest x-ray. Seen by surgery. 4 palliative paracentesis. Had a meeting with patient's daughter, 2 granddaughters at the bedside. Patient is DO NOT RESUSCITATE. Daughter is the POA. Overall prognosis guarded. It poor functional status. Awaiting input from oncology. Patient is barely eating. Active Medications Acetaminophen (Acetaminophen Tab 325 Mg Tab) 975 mg PO Q6H PRN PRN Reason: Mild Pain Albuterol/Ipratropium (Ipratropium-Albuterol 3 Ml Neb) 3 ml INHALATION RT-QID [facility] Last Admin: 01/07/22 12:22 Dose: Not Given Documented by: Budesonide (Budesonide 1 Mg/2 Ml Nebu) 1 mg INHALATION RT-BID [facility] Last Admin: 01/07/22 09:20 Dose: 1 mg Documented by: Calcium Carbonate/Glycine (Calcium Carbonate 500 Mg Chewable) 1,000 mg PO Q4HR PRN PRN Reason: Dyspepsia Last Admin: 01/07/22 12:52 Dose: 1,000 mg Documented by: Al Hydroxide/Mg Hydroxide 30 ml/ Lidocaine HCl 30 ml/Diphenhydramine HCl 75 mg/Nystatin 3,000,000 unit 0 ml PO TID [facility] Last Admin: 01/07/22 09:42 Dose: 5 ml Documented by: Dexamethasone (Dexamethasone 4 Mg Tab) 4 mg PO QID [facility] Last Admin: 01/07/22 08:56 Dose: 4 mg Documented by: Enoxaparin Sodium (Enoxaparin 30 Mg/0.3 Ml Syringe) 30 mg SQ DAILY [facility] Last Admin: 01/07/22 08:56 Dose: 30 mg Documented by: Hydromorphone HCl (Hydromorphone 0.5 Mg/0.5 Ml Syringe) 0.5 mg IVP Q3HR PRN PRN Reason: Moderate Pain Last Admin: 01/07/22 09:18 Dose: 0.5 mg Documented by: Ceftriaxone Sodium 1 gm/ (Sodium Chloride) 50 mls @ 100 mls/hr IVPB Q12HR [facility]; Protocol Last Admin: 01/07/22 09:41 Dose: 100 mls/hr Documented by: Sodium Chloride (Saline 0.9%) 1,000 mls @ 130 mls/hr IV .Q7H42M [facility] Last Admin: 01/07/22 07:33 Dose: Not Given Documented by: Insulin Aspart (Insulin Aspart (Novolog) 100 Unit/Ml Vial) 0 unit SQ AC-TID [facility]; Protocol Last Admin: 01/07/22 09:24 Dose: 3 unit Documented by: Lactulose (Lactulose 20 Gm/30 Ml Cup) 20 gm PO DAILY PRN PRN Reason: Constipation Lorazepam (Lorazepam 0.5 Mg Tab) 0.5 mg PO Q6HR PRN PRN Reason: Anxiety Last Admin: 01/07/22 01:02 Dose: 0.5 mg Documented by: Naloxone HCl (Naloxone 0.4 Mg/Ml 1 Ml Vial) 0.2 mg IV Q2M PRN PRN Reason: Opioid Reversal Ondansetron HCl (Ondansetron 4 Mg/2 Ml Vial) 4 mg IVP Q4HR PRN PRN Reason: Nausea And Vomiting Last Admin: 01/07/22 05:13 Dose: 4 mg Documented by: Oxycodone HCl (Oxycodone Hcl 5 Mg Tab) 7.5 mg PO Q4H PRN PRN Reason: Moderate Pain Last Admin: 01/06/22 13:38 Dose: 7.5 mg Documented by: Oxycodone HCl (Oxycodone Er 10 Mg Tab.Er.12h) 10 mg PO Q12HR [facility]; Protocol Last Admin: 01/07/22 08:55 Dose: 10 mg Documented by: Sodium Zirconium Cyclosilicate (Sodium Zirconium Cyclosilicate 10 Gm Packet) 5 gm PO TID [facility] Last Admin: 01/07/22 08:57 Dose: 5 gm Documented by: Temazepam (Temazepam 15 Mg Cap) 15 mg PO HS PRN PRN Reason: Insomnia Past medical history to include: Metastatic uterine cancer treated with chemotherapy, diabetes, hypertension, CAD stage IV, hypercholesterolemia Social history: Patient smoked for over 40 years. Not currently. Lives with her daughter Indy was also the POA. Family history: Reviewed, noncontributory to presentation Physical examination: VITAL SIGNS: 97.5, 16, 90, 170/72, 92% on 4 L GENERAL:laying in bed, awake, tired EYES: Pupils equal. Conjunctiva palel. HEENT: External appearance of nose and ears normal, oral cavity grossly normal. NECK: JVD not raised; masses not palpable. HEART: First and second heart sounds are normal; no edema. LUNGS: Respiratory rate increased, decreased breath sounds. ABDOMEN: Soft, distended, Doughy tender, liver spleen not palpable, PSYCH: [Alert and oriented x3; mood and affect anxious MUSCULOSKELETAL:No Clubbing/cyanosis;muscles-grossly intact, some more INVESTIGATIONS, reviewed in the clinical context: January 07: White count 38.9 hemoglobin 13 sodium 126 potassium 4.8 and 43 creatin ine 1.56 January 06: Sodium 125 potassium 5.4 BUN 39 creatinine 1.45 January 05: Sodium 123 potassium 6 BUN 37 creatinine 1.29 White count 20.6 hemoglobin 13.6 platelets 342 sodium 126 potassium 5.6 bicarb 16 BUN 32 creatinine 1.4 to lactic acid 2.1 AST 53 ALT 13 albumin 2.7 COVID 19 PCF: Not detected EKG tracing personally reviewed by me-sinus rhythm, rate 106 Right shoulder: No fracture Chest x-ray film personally reviewed by me-scattered shadows infiltrates CT head: Area of vasogenic edema in the left frontal lobe suspicious of prostatic disease. DJD. 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 Patient was being followed by Dr. Steven Ritchie at [facility]. She wants to move her care here at [place] on. New Metastatic disease found of the brain . Possible palliative radiation in place.. dexamethasone 4 mg twice a day. -Fall due to worsening medical debility Fall precautions -Acute on chronic abdominal pain that is progressive from metastatic disease intra-abdominally with taking of the omentum and other organs.: Not improving Decrease OxyContin 10 mg ER twice daily because of nausea -Acute kidney injury. Baseline kidney function not known. Suspect prerenal.: Worsening Hold Cozaar. Increase IV fluids -Metabolic acidosis due to kidney injury: Corrected IV sodium bicarbonate drip-discontinued -Hyperkalemia secondary to renal failure: Improving Lokelma. 10 mg 3 times a day. Renal diet -Hyperlipidemia Zocor 20 mg daily at bedtime -Diabetes mellitus type 2 Follow Accu-Cheks with sliding scale insulin -Vasogenic edema in the brain Dexamethasone 4 mg twice a day -Hypotension from volume loss. Hold Lopressor and Cozaar. IV fluids -DO NOT RESUSCITATE Visit cutback saline to 75 mL an hour. Give 1 dose of IV Lasix. 20 mg add Marinol. Intervention radiologist consulted for therapeutic paracentesis. Advanced care planning: Had a meeting with the patient's daughter, and 2 granddaughters at the bedside. Overall patient's guarded prognosis discussed. Questions answered. CODE STATUS is DO NOT RESUSCITATE. Daughter is the POA. At this point await further input from oncology terms of treatment. Total time spent 20 minutes
--- NOTE | 2022-01-07 14:16 | P.CRDCN ---
History of Present Illness Consult date: 01/07/22 History of present illness: HISTORY OF PRESENT ILLNESS: This is a 71-year-old female with a past medical history significant for hypertension, hyperlipidemia, diabetes, mild nonobstructive CAD, chronic kidney disease and uterine cancer with chemotherapy. Patient follows in the office with Dr. Nava. We have been asked to see the patient in consultation for chest pain. Apparently, the patient was having chest discomfort this morning along with SOB and abdominal pain. The patient has metastatic uterine cancer. She has significant ascites and is scheduled for palliative paracentesis tomorrow. An A team was called on the patient in cardiology was subsequently consulted. The patient was examined this afternoon at the bedside. The patient denies having any chest pain or pressure earlier today. Her only complaint is shortness of breath at this time. According to the patient's nurse, an EKG was unable to be obtained as the patient was unable to lay on her back without having distress. * Chest xray probable effusions, associated atelectasis versus edema may be present. Correlate to exclude pneumonia. * Laboratory data: WBC 38.9. Hemoglobin 13.0. Platelet count 269. Sodium 126. Potassium 4.8. BUN 43. Creatinine 1.56. * Current home cardiac medications include losartan 12.5 mg at night, metoprolol tartrate 12.5 mg twice a day, simvastatin 20 mg at night * Most recent echocardiogram obtained in February 2020 revealed ejection fraction 60% with mild concentric LVH * Cardiac catheterization history: 2018 revealing no significant obstructive CAD REVIEW OF SYSTEMS: At the time of my exam: CONSTITUTIONAL: Denies fever or chills. HEENT: Denies blurred vision, vision changes, or eye pain. Denies hemoptysis CARDIOVASCULAR: Denies chest pain. Denies orthopnea. Denies PND. Denies palpitations RESPIRATORY: +shortness of breath. GASTROINTESTINAL: Denies abdominal pain. Denies nausea or vomiting. HEMATOLOGIC: Denies bleeding disorders. GENITOURINARY: Denies any blood in urine. SKIN: Denies pruitis. Denies rash. PHYSICAL EXAM: VITAL SIGNS: Reviewed. GENERAL: Well-developed in no acute distress. HEENT: Head is normocephalic. Pupils are equal, round. Sclerae anicteric. Mucous membranes of the mouth are moist. Neck supple. No JVD or thyromegaly LUNGS: Respirations even and unlabored. Lungs essentially clear to auscultation bilaterally. HEART: Regular rate and rhythm. S1 and S2 heard. ABDOMEN: Soft. Distended. Nontender. EXTREMITIES: Normal range of motion. No clubbing or cyanosis. Peripheral pulses intact. Trace lower extremity edema NEUROLOGIC: Awake and alert. ASSESSMENT: Questionable chest pain, patient denies having chest pain or pressure Shortness of breath, worsened by ascites Metastatic uterine cancer Hypertension Hyperlipidemia Diabetes Mild nonobstructive CAD Chronic kidney disease PLAN: Continue current cardiac medications No indication for any further cardiac workup at this time We will sign off. Please reconsult if needed. Nurse practitioner note has been reviewed by physician. Signing provider agrees with the documented findings, assessment, and plan of care. Past Medical History Past Medical History: Cancer, Diabetes Mellitus, Hypertension Additional Past Medical History / Comment(s): kidney dx stage 4. liver issues. uterine cx with mets to liver and kidney. hypercholestremia History of Any Multi-Drug Resistant Organisms: None Reported Past Surgical History: Tubal Ligation Additional Past Surgical History / Comment(s): eye surgery Past Anesthesia/Blood Transfusion Reactions: No Reported Reaction Past Psychological History: No Psychological Hx Reported Smoking Status: Never smoker Past Alcohol Use History: None Reported Past Drug Use History: None Reported Medications and Allergies Home Medications Medication Instructions Recorded Confirmed Type Acetaminophen Tab [Tylenol] 975 mg PO Q6H PRN 01/03/22 01/03/22 History Ascorbic Acid [Vitamin C] 2,000 mg PO DAILY 01/03/22 01/03/22 History Cholecalciferol [Vitamin D3 (25 25 mcg PO DAILY 01/03/22 01/03/22 History Mcg = 1000 Iu)] Dulaglutide [Trulicity] 0.75 mg SQ MO 01/03/22 01/03/22 History Losartan [Cozaar] 12.5 mg PO HS 01/03/22 01/03/22 History Magnesium Hydroxide [Milk of 2,400 mg PO HS PRN 01/03/22 01/03/22 History Magnesia] Metoprolol Tartrate [Lopressor] 12.5 mg PO BID 01/03/22 01/03/22 History Simethicone Chew [Mylicon Chew] 80 mg PO QID PRN 01/03/22 01/03/22 History Simvastatin [Zocor] 20 mg PO HS 01/03/22 01/03/22 History ondansetron HCL [Zofran] 8 mg PO Q8H PRN 01/03/22 01/03/22 History oxyCODONE HCL [OxyIR] 7.5 mg PO Q4H PRN 01/03/22 01/03/22 History polyethylene glycoL 3350 [Miralax] 17 gm PO DAILY 01/03/22 01/03/22 History Allergies Allergy/AdvReac Type Severity Reaction Status Date / Time amoxicillin [From Augmentin] Allergy Unknown Verified 01/03/22 18:05 clavulanic acid Allergy Unknown Verified 01/03/22 18:05 [From Augmentin] erythromycin base Allergy Unknown Verified 01/03/22 18:05 metformin Allergy Unknown Verified 01/03/22 18:05 propoxyphene AdvReac Nausea & Verified 01/03/22 18:04 [From Darvocet-N] Vomiting sodium acetate trihydrate Allergy Unknown Uncoded 01/03/22 18:05 Physical Exam Vitals: Vital Signs Temp Pulse Pulse Resp BP BP Pulse Ox 01/07/22 11:23 30 H 01/07/22 09:39 116 H 01/07/22 09:27 116 H 01/07/22 08:00 97.5 F L 115 H 90 H 107/72 01/07/22 01:01 97.7 F 107 H 19 125/57 92 L 01/06/22 19:29 97.7 F 109 H 16 101/68 94 L 01/06/22 16:25 104 H 01/06/22 16:14 108 H Intake and Output 01/06/22 01/07/22 01/07/22 22:59 06:59 14:59 Intake Total 300 200 Output Total 300 Balance 300 -300 200 Intake: Oral 300 200 Output: Urine 300 Other: Voiding Method Indwelling Catheter Weight 81.647 kg Results 01/07/22 06:44 01/07/22 06:44 CBC 01/07/22 Range/Units 06:44 WBC 38.9 H (3.8-10.6) k/uL RBC 4.19 (3.80-5.40) m/uL Hgb 13.0 (11.4-16.0) gm/dL Hct 44.5 (34.0-46.0) % Plt Count 269 (150-450) k/uL Comprehensive Metabolic Panel 01/07/22 Range/Units 06:44 Sodium 126 L (137-145) mmol/L Potassium 4.8 (3.5-5.1) mmol/L Chloride 95 L (98-107) mmol/L Carbon Dioxide 20 L (22-30) mmol/L BUN 43 H (7-17) mg/dL Creatinine 1.56 H (0.52-1.04) mg/dL Glucose 199 H (74-99) mg/dL Calcium 9.2 (8.4-10.2) mg/dL Current Medications Generic Name Dose Route Start Last Admin Trade Name Freq PRN Reason Stop Dose Admin Acetaminophen 975 mg 01/04/22 10:16 Acetaminophen Tab 325 Mg Tab PO Q6H PRN Mild Pain Albuterol/Ipratropium 3 ml 01/04/22 16:00 01/07/22 12:22 Ipratropium-Albuterol 3 Ml Neb INHALATION Not Given RT-QID KESHIA Budesonide 1 mg 01/04/22 20:00 01/07/22 09:20 Budesonide 1 Mg/2 Ml Nebu INHALATION 1 mg RT-BID KESHIA Administration Calcium Carbonate/Glycine 1,000 mg 01/04/22 12:03 01/07/22 12:52 Calcium Carbonate 500 Mg Chewable PO 1,000 mg Q4HR PRN Administration Dyspepsia Al Hydroxide/Mg Hydroxide 30 0 ml 01/06/22 16:45 01/07/22 09:42 ml/ Lidocaine HCl 30 ml/ PO 5 ml Diphenhydramine HCl 75 mg/ TID KESHIA Administration Nystatin 3,000,000 unit Dexamethasone 4 mg 01/06/22 18:00 01/07/22 13:09 Dexamethasone 4 Mg Tab PO 4 mg QID KESHIA Administration Dronabinol 5 mg 01/07/22 17:30 Dronabinol 2.5 Mg Cap PO AC-BID KESHIA Enoxaparin Sodium 30 mg 01/05/22 09:00 01/07/22 08:56 Enoxaparin 30 Mg/0.3 Ml Syringe SQ 30 mg DAILY KESHIA Administration Hydromorphone HCl 0.5 mg 01/03/22 19:03 01/07/22 13:28 Hydromorphone 0.5 Mg/0.5 Ml Syringe IVP 0.5 mg Q3HR PRN Administration Moderate Pain Ceftriaxone Sodium 1 gm/ 50 mls @ 100 mls/hr 01/04/22 14:30 01/07/22 09:41 Sodium Chloride IVPB 100 mls/hr Q12HR KESHIA Administration Protocol Sodium Chloride 1,000 mls @ 130 mls/hr 01/06/22 13:15 01/07/22 13:41 Saline 0.9% IV 130 mls/hr .Q7H42M KESHIA Administration Insulin Aspart 0 unit 01/04/22 17:30 01/07/22 13:30 Insulin Aspart (Novolog) 100 Unit/Ml Vial SQ 2 unit AC-TID KESHIA Administration Protocol Lactulose 20 gm 01/04/22 12:03 Lactulose 20 Gm/30 Ml Cup PO DAILY PRN Constipation Lorazepam 0.5 mg 01/04/22 12:03 01/07/22 01:02 Lorazepam 0.5 Mg Tab PO 0.5 mg Q6HR PRN Administration Anxiety Naloxone HCl 0.2 mg 01/03/22 19:03 Naloxone 0.4 Mg/Ml 1 Ml Vial IV Q2M PRN Opioid Reversal Ondansetron HCl 4 mg 01/06/22 16:12 01/07/22 05:13 Ondansetron 4 Mg/2 Ml Vial IVP 4 mg Q4HR PRN Administration Nausea And Vomiting Oxycodone HCl 7.5 mg 01/04/22 10:16 01/06/22 13:38 Oxycodone Hcl 5 Mg Tab PO 7.5 mg Q4H PRN Administration Moderate Pain Oxycodone HCl 10 mg 01/06/22 21:00 01/07/22 08:55 Oxycodone Er 10 Mg Tab.Er.12h PO 10 mg Q12HR KESHIA Administration Protocol Sodium Zirconium Cyclosilicate 5 gm 01/06/22 13:30 01/07/22 08:57 Sodium Zirconium Cyclosilicate 10 Gm Packet PO 5 gm TID KESHIA Administration Temazepam 15 mg 01/04/22 12:03 Temazepam 15 Mg Cap PO HS PRN Insomnia Intake and Output 01/06/22 01/07/22 01/07/22 22:59 06:59 14:59 Intake Total 300 200 Output Total 300 Balance 300 -300 200 Intake: Oral 300 200 Output: Urine 300 Other: Voiding Method Indwelling Catheter Weight 81.647 kg Patient Weight 01/08/22 06:59 Weight 81.647 kg 01/07/22 06:44 01/07/22 06:44
--- NOTE | 2022-01-07 16:14 | P.PN ---
Subjective Progress Note Date: 01/07/22 Principal diagnosis: metastatic uterine cancer, concern for brain mets The patient was evaluated today. Sleeping at the time of evaluation. Did wake up briefly to say she had some anterior chest discomfort. No headache. Seemed to be short of breath. Did not tolerate attempt at MRI brain earlier today. Objective - Vital Signs Vital signs: Vital Signs Temp 97.5 F L 01/07/22 14:38 Pulse 115 H 01/07/22 14:38 Resp 20 01/07/22 14:38 BP 102/70 01/07/22 14:38 Pulse Ox 99 01/07/22 14:38 Intake & Output 01/06/22 01/07/22 01/07/22 18:59 06:59 18:59 Intake Total 300 200 Output Total 300 Balance 300 -300 200 Weight 81.647 kg Intake: Oral 300 200 Output: Urine 300 Other: Voiding Method Indwelling Catheter - Constitutional General appearance: Present: mild distress - EENT Eyes: Present: EOMI, PERRLA ENT: Present: hearing grossly normal - Neck Neck: Absent: lymphadenopathy - Gastrointestinal General gastrointestinal: Present: distended. Absent: tenderness - Integumentary Integumentary: Absent: cyanotic, flushed - Neurologic Neurologic: Present: CNII-XII intact - Psychiatric Psychiatric: Absent: A&O x's 3 - Labs CBC & Chem 7: 01/07/22 06:44 01/07/22 06:44 Labs: Abnormal Lab Results - Last 24 Hours (Table) 01/06/22 01/06/22 01/07/22 Range/Units 16:08 20:44 02:22 WBC (3.8-10.6) k/uL MCV (80.0-100.0) fL MCHC (31.0-37.0) g/dL Neutrophils # (Manual) (1.3-7.7) k/uL Lymphocytes # (Manual) (1.0-4.8) k/uL Monocytes # (Manual) (0-1.0) k/uL Sodium (137-145) mmol/L Chloride (98-107) mmol/L Carbon Dioxide (22-30) mmol/L BUN (7-17) mg/dL Creatinine (0.52-1.04) mg/dL Glucose (74-99) mg/dL POC Glucose (mg/dL) 198 H 169 H 172 H (75-99) mg/dL 01/07/22 01/07/22 01/07/22 Range/Units 06:44 06:44 07:11 WBC 38.9 H (3.8-10.6) k/uL MCV 106.2 H D (80.0-100.0) fL MCHC 29.3 L (31.0-37.0) g/dL Neutrophils # (Manual) 27.20 H (1.3-7.7) k/uL Lymphocytes # (Manual) 10.11 H (1.0-4.8) k/uL Monocytes # (Manual) 1.56 H (0-1.0) k/uL Sodium 126 L (137-145) mmol/L Chloride 95 L (98-107) mmol/L Carbon Dioxide 20 L (22-30) mmol/L BUN 43 H (7-17) mg/dL Creatinine 1.56 H (0.52-1.04) mg/dL Glucose 199 H (74-99) mg/dL POC Glucose (mg/dL) 223 H (75-99) mg/dL 01/07/22 01/07/22 Range/Units 09:09 11:34 WBC (3.8-10.6) k/uL MCV (80.0-100.0) fL MCHC (31.0-37.0) g/dL Neutrophils # (Manual) (1.3-7.7) k/uL Lymphocytes # (Manual) (1.0-4.8) k/uL Monocytes # (Manual) (0-1.0) k/uL Sodium (137-145) mmol/L Chloride (98-107) mmol/L Carbon Dioxide (22-30) mmol/L BUN (7-17) mg/dL Creatinine (0.52-1.04) mg/dL Glucose (74-99) mg/dL POC Glucose (mg/dL) 212 H 202 H (75-99) mg/dL Assessment and Plan Assessment: 71 year old female with history of metastatic uterine cancer. She has undergone chemotherapy and now recently was started on Keytruda. Admitted after a fall, failure to thrive. CT head shows left frontal vasogenic edema. 1. Brain metastases: Based on CT of brain there is high likelihood of metastatic disease in the left frontal area. However, an MRI with contrast would be needed to evaluate this better. Patient unable to get MRI today due to dyspnea and back pain. May be better able to tomorrow after paracentesis. 2. Metastatic uterine cancer: Per hospital notes patient has needed paracentesis twice per week which is typically productive of 2-3L of fluid. Limited CT view of lungs shows multiple areas of metastases. Current per formance status is poor. Will re-eval patient after paracentesis as some of her current symptoms may be from ascites. Time with Patient: Less than 30
[2022-01-07 16:36] LABS: Glucose,Whole Blood 148 mg/dL (75-99)
--- NOTE | 2022-01-07 16:55 | P.GSCN ---
History of Present Illness Consult date: 01/07/22 History of present illness: CHIEF COMPLAINT: Fall Reason for consult: Abdominal pain HISTORY OF PRESENT ILLNESS: This is a 71-year-old female with a known history of uterine cancer with metastatic disease to the lung, liver, kidney and possibly brain. Patient had been complaining of abdominal pain. Surgical service consult in the in regards to the abdominal pain. Patient does have evidence of abdominal ascites. Patient denies any nausea or vomiting. She has been tachycardic. She is afebrile. PAST MEDICAL HISTORY: Diabetes Mellitus, Hypertension,kidney dx stage 4. liver issues. uterine cx with mets to liver and kidney. hypercholestremia PAST SURGICAL HISTORY: Tubal ligation MEDICATIONS: See list. ALLERGIES: See list. SOCIAL HISTORY: No illicit drug use. REVIEW OF SYSTEMS: CONSTITUTIONAL: Denies fever or chills. HEENT: Denies blurred vision, vision changes, or eye pain. Denies hemoptysis CARDIOVASCULAR: Denies chest pain or pressure. RESPIRATORY: No shortness of breath. GASTROINTESTINAL: See HPI for pertinent findings HEMATOLOGIC: Denies bleeding disorders. GENITOURINARY: Denies any blood in urine or increased urinary frequency. SKIN: Denies pruitis. Denies rash. PHYSICAL EXAM: VITAL SIGNS: Reviewed GENERAL: Well-developed in no acute distress. HEENT: No sclera icterus. Extraocular movements grossly intact. Moist buccal mucosa. Head is atraumatic, normocephalic. No nasal drainage. ABDOMEN: Distended and evidence of abdominal ascites NEUROLOGIC: Confused LABORATORY DATA: WBC 38.9 hemoglobin 13 platelets 269 Sodium 126 potassium 4.8 creatinine 1.56 IMAGING: ASSESSMENT: 1. Abdominal ascites 2. Abdominal pain 3. History of metastatic uterine cancer PLAN: -Consult interventional radiology for palliative paracentesis -Continue oncology workup -Continue supportive care thank you for this consultation [facility] Consultant note has been reviewed by physician. Signing provider agrees with the documented findings, assessment, and plan of care. Past Medical History Past Medical History: Cancer, Diabetes Mellitus, Hypertension Additional Past Medical History / Comment(s): kidney dx stage 4. liver issues. uterine cx with mets to liver and kidney. hypercholestremia History of Any Multi-Drug Resistant Organisms: None Reported Past Surgical History: Tubal Ligation Additional Past Surgical History / Comment(s): eye surgery Past Anesthesia/Blood Transfusion Reactions: No Reported Reaction Past Psychological History: No Psychological Hx Reported Smoking Status: Never smoker Past Alcohol Use History: None Reported Past Drug Use History: None Reported Medications and Allergies Home Medications Medication Instructions Recorded Confirmed Type Acetaminophen Tab [Tylenol] 975 mg PO Q6H PRN 01/03/22 01/03/22 History Ascorbic Acid [Vitamin C] 2,000 mg PO DAILY 01/03/22 01/03/22 History Cholecalciferol [Vitamin D3 (25 25 mcg PO DAILY 01/03/22 01/03/22 History Mcg = 1000 Iu)] Dulaglutide [Trulicity] 0.75 mg SQ MO 01/03/22 01/03/22 History Losartan [Cozaar] 12.5 mg PO HS 01/03/22 01/03/22 History Magnesium Hydroxide [Milk of 2,400 mg PO HS PRN 01/03/22 01/03/22 History Magnesia] Metoprolol Tartrate [Lopressor] 12.5 mg PO BID 01/03/22 01/03/22 History Simethicone Chew [Mylicon Chew] 80 mg PO QID PRN 01/03/22 01/03/22 History Simvastatin [Zocor] 20 mg PO HS 01/03/22 01/03/22 History ondansetron HCL [Zofran] 8 mg PO Q8H PRN 01/03/22 01/03/22 History oxyCODONE HCL [OxyIR] 7.5 mg PO Q4H PRN 01/03/22 01/03/22 History polyethylene glycoL 3350 [Miralax] 17 gm PO DAILY 01/03/22 01/03/22 History Allergies Allergy/AdvReac Type Severity Reaction Status Date / Time amoxicillin [From Augmentin] Allergy Unknown Verified 01/03/22 18:05 clavulanic acid Allergy Unknown Verified 01/03/22 18:05 [From Augmentin] erythromycin base Allergy Unknown Verified 01/03/22 18:05 metformin Allergy Unknown Verified 01/03/22 18:05 propoxyphene AdvReac Nausea & Verified 01/03/22 18:04 [From Darvocet-N] Vomiting sodium acetate trihydrate Allergy Unknown Uncoded 01/03/22 18:05 Surgical - Exam Vital Signs Temp Pulse Resp BP Pulse Ox 95.4 F L 107 H 20 104/48 95 01/03/22 16:45 01/03/22 16:45 01/03/22 16:45 01/03/22 16:45 01/03/22 16:45 Results - Labs 01/07/22 06:44 01/07/22 06:44 Abnormal Lab Results - Last 24 Hours (Table) 01/06/22 01/07/22 01/07/22 Range/Units 20:44 02:22 06:44 WBC (3.8-10.6) k/uL MCV (80.0-100.0) fL MCHC (31.0-37.0) g/dL Neutrophils # (Manual) (1.3-7.7) k/uL Lymphocytes # (Manual) (1.0-4.8) k/uL Monocytes # (Manual) (0-1.0) k/uL Sodium 126 L (137-145) mmol/L Chloride 95 L (98-107) mmol/L Carbon Dioxide 20 L (22-30) mmol/L BUN 43 H (7-17) mg/dL Creatinine 1.56 H (0.52-1.04) mg/dL Glucose 199 H (74-99) mg/dL POC Glucose (mg/dL) 169 H 172 H (75-99) mg/dL 01/07/22 01/07/22 01/07/22 Range/Units 06:44 07:11 09:09 WBC 38.9 H (3.8-10.6) k/uL MCV 106.2 H D (80.0-100.0) fL MCHC 29.3 L (31.0-37.0) g/dL Neutrophils # (Manual) 27.20 H (1.3-7.7) k/uL Lymphocytes # (Manual) 10.11 H (1.0-4.8) k/uL Monocytes # (Manual) 1.56 H (0-1.0) k/uL Sodium (137-145) mmol/L Chloride (98-107) mmol/L Carbon Dioxide (22-30) mmol/L BUN (7-17) mg/dL Creatinine (0.52-1.04) mg/dL Glucose (74-99) mg/dL POC Glucose (mg/dL) 223 H 212 H (75-99) mg/dL 01/07/22 01/07/22 Range/Units 11:34 16:35 WBC (3.8-10.6) k/uL MCV (80.0-100.0) fL MCHC (31.0-37.0) g/dL Neutrophils # (Manual) (1.3-7.7) k/uL Lymphocytes # (Manual) (1.0-4.8) k/uL Monocytes # (Manual) (0-1.0) k/uL Sodium (137-145) mmol/L Chloride (98-107) mmol/L Carbon Dioxide (22-30) mmol/L BUN (7-17) mg/dL Creatinine (0.52-1.04) mg/dL Glucose (74-99) mg/dL POC Glucose (mg/dL) 202 H 148 H (75-99) mg/dL Diabetes panel 01/07/22 Range/Units 06:44 Sodium 126 L (137-145) mmol/L Potassium 4.8 (3.5-5.1) mmol/L Chloride 95 L (98-107) mmol/L Carbon Dioxide 20 L (22-30) mmol/L BUN 43 H (7-17) mg/dL Creatinine 1.56 H (0.52-1.04) mg/dL Glucose 199 H (74-99) mg/dL Calcium 9.2 (8.4-10.2) mg/dL Calcium panel 01/07/22 Range/Units 06:44 Calcium 9.2 (8.4-10.2) mg/dL Pituitary panel 01/07/22 Range/Units 06:44 Sodium 126 L (137-145) mmol/L Potassium 4.8 (3.5-5.1) mmol/L Chloride 95 L (98-107) mmol/L Carbon Dioxide 20 L (22-30) mmol/L BUN 43 H (7-17) mg/dL Creatinine 1.56 H (0.52-1.04) mg/dL Glucose 199 H (74-99) mg/dL Calcium 9.2 (8.4-10.2) mg/dL Adrenal panel 01/07/22 Range/Units 06:44 Sodium 126 L (137-145) mmol/L Potassium 4.8 (3.5-5.1) mmol/L Chloride 95 L (98-107) mmol/L Carbon Dioxide 20 L (22-30) mmol/L BUN 43 H (7-17) mg/dL Creatinine 1.56 H (0.52-1.04) mg/dL Glucose 199 H (74-99) mg/dL Calcium 9.2 (8.4-10.2) mg/dL
[2022-01-07 21:04] LABS: Glucose,Whole Blood 206 mg/dL (75-99)
[2022-01-08 00:59] VITALS: TEMP 97.3
[2022-01-08 01:01] VITALS: BP 87/46; PULSE 111; RESP 17
[2022-01-08] MEDS: HYDROmorphone 0.5 MG/0.5 ML SYRINGE IVP PRN (04:15)
[2022-01-08] MEDS: ENOXAPARIN 30 MG/0.3 ML SYRINGE SQ SCH (06:46)
[2022-01-08] MEDS: SODIUM CHLORIDE 0.9% 1,000 ML IV SCH (06:46)
[2022-01-08 06:55] LABS: Glucose,Whole Blood 179 mg/dL (75-99)
[2022-01-08] MEDS: IPRATROPIUM-ALBUTEROL 3 ML NEB INHALATION SCH (11:17)
[2022-01-08] MEDS: BUDESONIDE 1 MG/2 ML NEBU INHALATION SCH (11:17)
--- NOTE | 2022-01-08 13:54 | P.DS ---
Providers Date of admission: 01/03/22 19:04 Expected date of discharge: 01/08/22 Attending physician: Ramon Jalloh Consults: 01/03/22 19:04 Consult Physician Routine Consulting Provider: Ge Tafoya Consult Reason/Comments: Metastatic uterine cancer Do you want consulting provider notified?: Yes 01/04/22 14:21 Consult Physician Routine Consulting Provider: Kan Mcclain Consult Reason/Comments: Brain vasogenic edema Do you want consulting provider notified?: Yes 01/06/22 15:24 Consult Physician Routine Consulting Provider: Blair Victor Consult Reason/Comments: surgical consult for belly pain Do you want consulting provider notified?: Yes Primary care physician: Evonne Ritchie [facility] Course: Chief Complaint: Weakness leading to fall This is a pleasant 71-year-old patient who follows with Dr. Ritchie. Patient has a diagnosis of uterine cancer with metastatic cystoscopy of the lungs kidney liver diagnosed about 1 year ago. She follows with Dr. Mckinney out of [facility]. Patient has received 6 rounds of chemotherapy. Has been getting currently getting Keytruda. Patient was discharged from [facility] 2 days ago. Patient has increasing abdominal pain. Bloated. Appetite is poor. Denies any fever and chills. Normally a bowel movement every 3 days with a laxative. Does get short of breath. No cough. Feels rather weak. Patient got up from a chair at home and fell down falling on the right side hitting her shoulder and head. Did not pass out. She normally uses assistance to walk. She does not wish to continue her treatment down to [place] anymore and wants to establish locally. January 05: Still having significant abdominal and hip pain. OxyContin will be increased to 15 mg twice a day. Potassium running high. Lokelma and it 10 mg 3 times a day. Radiation oncology is looking at palliative radiation treatment. Add ensure. Decreased appetite. January 06: Decreased appetite. Significant nausea. Received 1 dose of Dilaudid earlier. Since dose of OxyContin was increased yesterday that she be cut back to 10 mg twice daily. Discussed with patient. Pending possible radiation treatment to the brain. Tired. Laying in bed. January 07: Continues to feel weak and tired. A bit short of breath. Some pleural effusion on the chest x-ray. Seen by surgery. 4 palliative paracentesis. Had a meeting with patient's daughter, 2 granddaughters at the bedside. Patient is DO NOT RESUSCITATE. Daughter is the POA. Overall prognosis guarded. It poor functional status. Awaiting input from oncology. Patient is barely eating. January 08: Patient today. I called and spoke to the daughter over the phone. Past medical history to include: Metastatic uterine cancer treated with chemotherapy, diabetes, hypertension, CAD stage IV, hypercholesterolemia Social history: Patient smoked for over 40 years. Not currently. Lives with her daughter Indy was also the POA. Family history: Reviewed, noncontributory to presentation INVESTIGATIONS, reviewed in the clinical context: January 07: White count 38.9 hemoglobin 13 sodium 126 potassium 4.8 and 43 creatinine 1.56 January 06: Sodium 125 potassium 5.4 BUN 39 creatinine 1.45 January 05: Sodium 123 potassium 6 BUN 37 creatinine 1.29 White count 20.6 hemoglobin 13.6 platelets 342 sodium 126 potassium 5.6 bicarb 16 BUN 32 creatinine 1.4 to lactic acid 2.1 AST 53 ALT 13 albumin 2.7 COVID 19 PCF: Not detected EKG tracing personally reviewed by me-sinus rhythm, rate 106 Right shoulder: No fracture Chest x-ray film personally reviewed by me-scattered shadows infiltrates CT head: Area of vasogenic edema in the left frontal lobe suspicious of prostatic disease. DJD. 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 Patient was being followed by Dr. Steven Ritchie at [facility]. She wants to move her care here at [place] on. New Metastatic disease found of the brain . Possible palliative radiation in place.. dexamethasone 4 mg twice a day. -Fall due to worsening medical debility Fall precautions -Acute on chronic abdominal pain that is progressive from metastatic disease intra-abdominally with taking of the omentum and other organs.: Not improving Decrease OxyContin 10 mg ER twice daily because of nausea -Acute kidney injury. Baseline kidney function not known. Suspect prerenal.: Worsening Hold Cozaar. Increase IV fluids -Metabolic acidosis due to kidney injury: Corrected IV sodium bicarbonate drip-discontinued -Hyperkalemia secondary to renal failure: Improving Lokelma. 10 mg 3 times a day. Renal diet -Hyperlipidemia Zocor 20 mg daily at bedtime -Diabetes mellitus type 2 Follow Accu-Cheks with sliding scale insulin -Vasogenic edema in the brain Dexamethasone 4 mg twice a day -Hypotension from volume loss. Hold Lopressor and Cozaar. IV fluids -DO NOT RESUSCITATE Disposition: Patient Plan - Discharge Summary Discharge Rx Participant: Yes New Discharge Prescriptions: Discontinued Metoprolol Tartrate [Lopressor] 12.5 mg PO BID Simethicone Chew [Mylicon Chew] 80 mg PO QID PRN PRN Reason: gas Dulaglutide [Trulicity] 0.75 mg SQ MO polyethylene glycoL 3350 [Miralax] 17 gm PO DAILY ondansetron HCL [Zofran] 8 mg PO Q8H PRN PRN Reason: Nausea And Vomiting Magnesium Hydroxide [Milk of Magnesia] 2,400 mg PO HS PRN PRN Reason: Constipation Simvastatin [Zocor] 20 mg PO HS Losartan [Cozaar] 12.5 mg PO HS Cholecalciferol [Vitamin D3 (25 Mcg = 1000 Iu)] 25 mcg PO DAILY Ascorbic Acid [Vitamin C] 2,000 mg PO DAILY oxyCODONE HCL [OxyIR] 7.5 mg PO Q4H PRN PRN Reason: Pain Acetaminophen Tab [Tylenol] 975 mg PO Q6H PRN PRN Reason: Pain Discharge Disposition: - Preliminary Cause of Preliminary Cause of : Metastatic uterine cancer
--- NOTE | 2022-01-11 16:17 | CDI ---
Documentation Clarification Form Date: 01/11/2022 03:59:37 PM From: Mariel Burroughs RN, CCDS Email: [email or web address] Admit Date: 01/03/2022 07:04:00 PM Patient Name: Alka Isbell Visit Number: [id number] Discharge Date: 01/08/2022 12:24:00 PM ATTENTION: The Clinical Documentation Specialists (CDI) and [facility] Coding Staff appreciate your assistance in clarifying documentation. Please respond to the clarification below the line at the bottom and electronically sign. The CDI & [facility] Coding staff will review the response and follow-up if needed. Please note: Queries are made part of the Legal Health Record. If you have any questions, please contact the author of this message via ITS. Dr. Ramon Jalloh Your patient had a respiratory rate of 28-30 on 01/07 with administration of supplemental oxygen. Based on this information and the findings below, is there an additional diagnosis that is clinically appropriate for this patient? History/Risk Factors: uterine cancer with metastases to the lungs, kidney and liver diagnosed about 1 year ago - s/p 6 rounds of chemotherapy. Increasing abdominal pain and bloating. Fell at home. Admitted with possible gram negative pneumonia. Clinical Indicators: 01/07 nursing note: short of breath, labored, persistent dyspnea, talks in phrases. 01/07 PN: Respiratory rate increased, decreased breath sounds. Vital signs: 01/07 RR 30, HR 116 Pulse oximetry: 01/07 92% on oxygen 01/07 CXR: Probable effusions, expiratory exam. Associated atelectasis versus edema may be present, correlate to exclude pneumonia Treatment: Breathing tx: Albuterol 3ml QID, Pulmicort BID, Ceftriaxone 1gm Q12H O2: 2-6LNC throughout admission Is there an additional diagnosis that is clinically appropriate for this patient? [ ] Acute Hypoxic Respiratory Failure (pO2 <60 mm Hg or SpO2 <91% on room air) [ ] Other Diagnosis, please specify [ ] Unable to determine (Template Last Revised: December 2020) Acute hypoxic respiratory failure, from pneumonia MTDD
== END 2022-01-08 12:24 | disposition expired | DRG 177 ==
LOC: EC 16:44 → 4SSUR 19:04
PROVIDERS: ADMIT Hospitalist; ATTEND Hospitalist
DX: J15.6 Pneumonia due to other Gram-negative bacteria (principal); G93.6 Cerebral edema; J96.01 Acute respiratory failure with hypoxia; C78.7 Secondary malignant neoplasm of liver and intrahepatic bile duct; C78.00 Secondary malignant neoplasm of unspecified lung; C78.6 Secondary malignant neoplasm of retroperitoneum and peritoneum; C79.31 Secondary malignant neoplasm of brain; C79.00 Secondary malignant neoplasm of unspecified kidney and renal pelvis; B37.0 Candidal stomatitis; N18.4 Chronic kidney disease, stage 4 (severe); N17.9 Acute kidney failure, unspecified; E87.1 Hypo-osmolality and hyponatremia; E87.2 Acidosis; J90 Pleural effusion, not elsewhere classified; R18.8 Other ascites; Z20.822 Contact with and (suspected) exposure to COVID-19; Z66 Do not resuscitate; C55 Malignant neoplasm of uterus, part unspecified; E11.22 Type 2 diabetes mellitus with diabetic chronic kidney disease; R62.7 Adult failure to thrive; I12.9 Hypertensive chronic kidney disease with stage 1 through stage 4 chronic kidney disease, or unspecified chronic kidney disease; D63.1 Anemia in chronic kidney disease; Z79.4 Long term (current) use of insulin; I95.9 Hypotension, unspecified; E78.00 Pure hypercholesterolemia, unspecified; D72.829 Elevated white blood cell count, unspecified; E78.5 Hyperlipidemia, unspecified; E87.5 Hyperkalemia; F41.9 Anxiety disorder, unspecified; G47.00 Insomnia, unspecified; G89.29 Other chronic pain; I25.10 Atherosclerotic heart disease of native coronary artery without angina pectoris; K59.00 Constipation, unspecified; M19.90 Unspecified osteoarthritis, unspecified site; M25.511 Pain in right shoulder; W19.XXXA Unspecified fall, initial encounter; Y92.009 Unspecified place in unspecified non-institutional (private) residence as the place of occurrence of the external cause; Z79.899 Other long term (current) drug therapy; Z87.891 Personal history of nicotine dependence; Z92.21 Personal history of antineoplastic chemotherapy; R11.2 Nausea with vomiting, unspecified; Z98.890 Other specified postprocedural states; Z98.51 Tubal ligation status; R53.81 Other malaise; K21.9 Gastro-esophageal reflux disease without esophagitis; Z88.1 Allergy status to other antibiotic agents; Z88.0 Allergy status to penicillin; Z88.8 Allergy status to other drugs, medicaments and biological substances; Z79.891 Long term (current) use of opiate analgesic
CPT/HCPCS: 36415; 70450; 71045; 71046; 72125; 80048; 80053; 81001; 82150; 83605; 83690; 83735; 84484; 85025; 85610; 85730; 87635; 93005; 94640; 94760; 96361; 96374; 96375; 99285